=== PATIENT | male | born 1990 | race Caucasian/White ===

== ENCOUNTER 2020-09-11 03:10 | Emergency (ER) | payer MEDICAID ==
[~2020-09-11] VITALS: Ht 160 cm; Wt 77.3 kg
[2020-09-11] MEDS ORDERED: LORazepam 2 mg/ml vial IV ONE (03:20)
[2020-09-11 03:36] LABS: BASOPHILS # (AUTO) 0.1 X10'3 (0-0.2); BASOPHILS % (AUTO) 0.3 % (0-1); EOSINOPHILS % (AUTO) 0.1 % (0-6); HEMATOCRIT 50.3 % (42.0-52.0); HEMOGLOBIN 17.2 g/dl (14.0-17.9); LYMPHOCYTES % (AUTO) 11.3 % (21-51); MEAN CORPUSCULAR HGB CONC 34.2 g/dL (33.0-36.5); MEAN CORPUSCULAR VOLUME 90.5 FL (78-98); MEAN PLATELET VOLUME 8.2 FL (7.4-10.4); MONOCYTES # (AUTO) 1.1 X10'3 (0-0.9); MONOCYTES % (AUTO) 6.6 % (2-12); NEUTROPHILS # (AUTO) 14.2 X10'3 (1.8-7.7); NEUTROPHILS % (AUTO) 81.7 % (42-75); PLATELET COUNT 321 X10'3 (140-440); RED BLOOD COUNT 5.55 X10'6 (4.70-6.10); RED CELL DISTRIBUTION WIDTH 13.7 % (11.5-14.5); WHITE BLOOD COUNT 17.3 X10'3 (4.5-11.0)
--- NOTE | 2020-09-11 03:49 | NUR ---
Pt initially agitated with increased respiratory rate. After giving meds per MD order pt is resting quitely with eyes closed in no distress with normal work of breathing.
[2020-09-11 03:58] LABS: ALANINE AMINOTRANSFERASE 46 U/L (12-78); ALBUMIN 5.1 G/DL (3.4-5.0); ALBUMIN/GLOBULIN RATIO 1.4 (1.1-1.5); ALKALINE PHOSPHATASE 59 IU/L (46-116); ANION GAP 28 (8-16); ASPARTATE AMINO TRANSFERASE 32 U/L (10-37); BILIRUBIN,TOTAL 0.7 MG/DL (0.1-1.0); BLOOD UREA NITROGEN 8 MG/DL (7-18); BUN/CREATININE RATIO 7.4 (5.4-32.0); CALCIUM 9.7 MG/DL (8.5-10.1); CHLORIDE 101 MMOL/L (99-107); CREATININE 1.08 MG/DL (0.60-1.10); GLUCOSE 130 MG/DL (70-104); POTASSIUM 3.6 MMOL/L (3.5-5.1); SODIUM 143 MMOL/L (135-145); TOTAL PROTEIN 8.7 G/DL (6.4-8.2); eGFR 80 ML/MIN
[2020-09-11] MEDS ORDERED: normal saline 1000ML IV soln IVB ONE (04:20)
[2020-09-11 04:40] LABS: ETHANOL < 0.010 GM/DL (0.0-0.010)
[2020-09-11 04:41] LABS: ABG HCO3 13.5 mmol/L (22.0-26.0); ABG OXYGEN SATURATION 97.5 % (94-97); ABG PCO2 (T) 26.6 mmHg (35.0-48.0); ABG PO2 (T) 88.6 mmHg (75.0-100.0); ALLEN'S TEST POSITIVE; FCOHb 1.9 % (0.0-3.9); FMetHb 0.3 % (0.0-1.5); FO2Hb 95.4 % (94-97); PATIENT TEMPERATURE 35.9; TOTAL HEMOGLOBIN 17.2 G/dl (14.0-18.0)
--- NOTE | 2020-09-11 05:04 | NUR ---
Pt con to rest quietly in no apparent distress. States he is feeling much better.
[2020-09-11 05:43] VITALS: BP 112/65
== END 2020-09-11 05:46 | disposition home or self-care (01) ==
LOC: ER 03:10
DX: R06.02 Shortness of breath (principal); R07.89 Other chest pain; E87.2 Acidosis; F10.20 Alcohol dependence, uncomplicated; F17.200 Nicotine dependence, unspecified, uncomplicated; F12.90 Cannabis use, unspecified, uncomplicated; Z87.442 Personal history of urinary calculi; Z98.890 Other specified postprocedural states; Z72.89 Other problems related to lifestyle; Y90.0 Blood alcohol level of less than 20 mg/100 ml
CPT/HCPCS: 36415; 36600; 71045; 80053; 80320; 82803; 83880; 84484; 85018; 85025; 93005; 96361; 96374; 99285; J2060; J7030

== ENCOUNTER 2023-03-17 17:51 | Emergency (ER) | payer MEDICAID ==
[~2023-03-17] VITALS: Ht 162.6 cm; Wt 81.8 kg
[2023-03-17] MEDS ORDERED: ketorolac tromethamine 15mg/ml inj. IM ONE (20:05)
[2023-03-17] MEDS ORDERED: ketorolac trometh. 30mg/ml inj. IM ONE (20:20)
--- NOTE | 2023-03-17 21:37 | NUR ---
PT GIVEN PARTNERSHIP PACKET OF PCP.
== END 2023-03-17 21:38 | disposition home or self-care (01) ==
LOC: ER 17:52
DX: M54.32 Sciatica, left side (principal); M54.31 Sciatica, right side; F12.10 Cannabis abuse, uncomplicated; Z87.442 Personal history of urinary calculi
CPT/HCPCS: 72100; 96372; 99283; J1885

== ENCOUNTER 2024-04-17 06:01 | Emergency (ER) | payer MEDICAID ==
[~2024-04-17] VITALS: Ht 162.6 cm; Wt 100.8 kg
[2024-04-17 07:01] LABS: BASOPHILS % (AUTO) 0.2 % (0-1); EOSINOPHILS % (AUTO) 0 % (0-6); HEMOGLOBIN 17.5 g/dl (14.0-17.9); LYMPHOCYTES # (AUTO) 0.5 X10'3 (1.1-4.8); LYMPHOCYTES % (AUTO) 4.7 % (21-51); MEAN CORPUSCULAR HEMOGLOBIN 32.8 PG (27.0-31.0); MEAN CORPUSCULAR HGB CONC 34.2 g/dL (33.0-36.5); MEAN CORPUSCULAR VOLUME 95.9 FL (78-98); MEAN PLATELET VOLUME 8.9 FL (7.4-10.4); MONOCYTES # (AUTO) 0.9 X10'3 (0-0.9); MONOCYTES % (AUTO) 8.8 % (2-12); NEUTROPHILS % (AUTO) 86.3 % (42-75); PLATELET COUNT 176 X10'3 (140-440); RED BLOOD COUNT 5.32 X10'6 (4.70-6.10); WHITE BLOOD COUNT 10.4 X10'3 (4.5-11.0)
[2024-04-17 07:02] LABS: ALANINE AMINOTRANSFERASE 386 U/L (12-78); ALBUMIN 4.8 G/DL (3.4-5.0); ALKALINE PHOSPHATASE 108 IU/L (46-116); ANION GAP 34 (8-16); ASPARTATE AMINO TRANSFERASE 584 U/L (10-37); BILIRUBIN,TOTAL 3.3 MG/DL (0.1-1.0); BLOOD UREA NITROGEN 21 MG/DL (7-18); BUN/CREATININE RATIO 12.4 (10.0-20.0); CALCIUM 10.4 MG/DL (8.5-10.1); CHLORIDE 86 MMOL/L (99-107); CREATININE 1.69 MG/DL (0.60-1.10); ETHANOL < 10 MG/DL (<10); GLUCOSE 199 MG/DL (70-104); LIPASE 71 U/L (16-77); SODIUM 135 MMOL/L (135-145); TOTAL PROTEIN 9.6 G/DL (6.4-8.2); eCRCL 51 ML/MIN; eGFR 46 ML/MIN
[2024-04-17 07:07] LABS: TOTAL CARBON DIOXIDE 14.6 MMOL/L (24-32)
[2024-04-17] MEDS: LORazepam 2 mg/ml vial IV ONE (07:09)
[2024-04-17] MEDS: proCHLORperazine 10 MG/2 ml inj IV ONE (07:09)
[2024-04-17] MEDS: normal saline 1000ML IV soln IVB ONE (07:09)
[2024-04-17] MEDS: HYDROmorphone 1 mg/ml syringe IV ONE ×2 (07:10→09:40)
[2024-04-17] MEDS: mag hydrox/Alum hydrox/simeth 30ml oral suspension PO ONE (08:19)
[2024-04-17 09:30] VITALS: BP 157/100; PULSE 114; TEMP 97.7; O2SAT 98
[2024-04-17] MEDS: normal saline 1000ml 1,000 ML IV ONE (09:40)
[2024-04-17 09:56] VITALS: RESP 23
[2024-04-17] MEDS ORDERED: HYDR-3965 PO (10:28)
[2024-04-17] MEDS ORDERED: PANT40SU2 PO (10:28)
[2024-04-17 10:37] LABS: BILIRUBIN,URINE MODERATE (Neg); CLARITY,URINE SLIGHTLY CLOUDY (Clear); COLOR,URINE YELLOW (Yellow); GLUCOSE, URINE NEGATIVE (Neg); KETONES,URINE >=80 mg/dl (Neg); LEUKOCYTE ESTERASE ,URINE NEGATIVE (Neg); NITRITES, URINE NEGATIVE (Neg); OCCULT BLOOD,URINE LARGE (Neg); PROTEIN,URINE 30 mg/dl (Neg); UROBILINOGEN,URINE 0.2 E.U/dL (0.2-1.0)
[2024-04-17 10:40] LABS: UA COLLECTION TYPE VOIDED
[2024-04-17 10:47] LABS: BACTERIA,URINE 1+ /HPF (Neg); MUCUS STRANDS MODERATE /LPF (Neg); RBC,URINE 50-100 /HPF (0-2); SQUAMOUS EPITHELIAL CELL,UR FEW /LPF (FEW)
[2024-04-17 10:48] LABS: WBC CASTS 0-3 /LPF (NEGATIVE)
== END 2024-04-17 11:11 | disposition home or self-care (01) ==
LOC: ER 06:02
DX: K29.70 Gastritis, unspecified, without bleeding (principal); E87.29 Other acidosis; R11.2 Nausea with vomiting, unspecified; I10 Essential (primary) hypertension; F12.90 Cannabis use, unspecified, uncomplicated; Z79.899 Other long term (current) drug therapy
CPT/HCPCS: 36415; 71045; 80053; 80320; 81001; 83690; 85025; 87088; 96361; 96374; 96375; 96376; 99285; J0780; J1170; J2060; J7030

== ENCOUNTER 2024-08-09 10:59 | Emergency (ER) | payer MEDICAID ==
[~2024-08-09] VITALS: Ht 162.6 cm; Wt 99.6 kg
[~2024-08-09 10:59] MED LIST: GABA-535 PO; LISI10TA27 PO; ONDA-243 PO; PANT40SU2 PO; SUCR1TAB34 PO; TIZA2CAP7 PO
[2024-08-09] MEDS ORDERED: pantoprazole 40 MG vial IV SCH (11:50)
[2024-08-09] MEDS: ondansetron/PF 4mg/2ml inj IV ONE (12:13)
[2024-08-09] MEDS: normal saline 1000ml 1,000 ML IV ONE (12:13)
[2024-08-09] MEDS: pantoprazole 40 MG vial IV ONE (12:16)
[2024-08-09 12:33] LABS: WHITE BLOOD COUNT 12.8 X10'3 (4.5-11.0)
[2024-08-09 12:37] LABS: BASOPHILS % (AUTO) 0.2 % (0-1); EOSINOPHILS % (AUTO) 0 % (0-6); HEMATOCRIT 47.5 % (42.0-52.0); HEMOGLOBIN 16.1 g/dl (14.0-17.9); LYMPHOCYTES # (AUTO) 0.8 X10'3 (1.1-4.8); LYMPHOCYTES % (AUTO) 5.9 % (21-51); MEAN CORPUSCULAR HEMOGLOBIN 31.7 PG (27.0-31.0); MEAN CORPUSCULAR HGB CONC 33.8 g/dL (33.0-36.5); MEAN CORPUSCULAR VOLUME 93.5 FL (78-98); MEAN PLATELET VOLUME 8.3 FL (7.4-10.4); MONOCYTES # (AUTO) 0.6 X10'3 (0-0.9); MONOCYTES % (AUTO) 4.6 % (2-12); NEUTROPHILS # (AUTO) 11.4 X10'3 (1.8-7.7); NEUTROPHILS % (AUTO) 89.3 % (42-75); PLATELET COUNT 236 X10'3 (140-440); RED BLOOD COUNT 5.08 X10'6 (4.70-6.10); RED CELL DISTRIBUTION WIDTH 13.3 % (11.5-14.5)
[2024-08-09 12:48] LABS: ALANINE AMINOTRANSFERASE 38 U/L (12-78); ALBUMIN 4.1 G/DL (3.4-5.0); ALBUMIN/GLOBULIN RATIO 1.2 (1.1-1.5); ALKALINE PHOSPHATASE 66 IU/L (46-116); ANION GAP 22 (8-16); ASPARTATE AMINO TRANSFERASE 40 U/L (10-37); BILIRUBIN,TOTAL 1.1 MG/DL (0.1-1.0); BLOOD UREA NITROGEN 13 MG/DL (7-18); BUN/CREATININE RATIO 15.1 (10.0-20.0); CHLORIDE 102 MMOL/L (99-107); CREATININE 0.86 MG/DL (0.60-1.10); GLUCOSE 128 MG/DL (70-104); LIPASE 17 U/L (16-77); POTASSIUM 3.3 MMOL/L (3.5-5.1); SODIUM 142 MMOL/L (135-145); TOTAL CARBON DIOXIDE 18.5 MMOL/L (24-32); TOTAL PROTEIN 7.5 G/DL (6.4-8.2); eCRCL 100 ML/MIN; eGFR > 90 ML/MIN
[2024-08-09 14:09] VITALS: BP 121/66; PULSE 85; RESP 16; TEMP 98.2; O2SAT 99
[2024-08-09] MEDS ORDERED: OMEP40CA21 PO (23:29)
[2024-08-09] MEDS ORDERED: ONDA-243 PO (23:29)
[2024-08-09] MEDS ORDERED: CHLO25CA10 PO (23:29)
== END 2024-08-09 14:12 | disposition home or self-care (01) ==
LOC: ER 10:59
DX: K29.00 Acute gastritis without bleeding (principal); G58.8 Other specified mononeuropathies; I10 Essential (primary) hypertension; Z79.899 Other long term (current) drug therapy; Z87.19 Personal history of other diseases of the digestive system
CPT/HCPCS: 36415; 80053; 83690; 85025; 96361; 96374; 96375; 99284; J2405; J2470; J7030

== ENCOUNTER 2024-08-09 20:29 | Emergency (ER) | payer MEDICAID ==
[~2024-08-09] VITALS: Ht 162.6 cm; Wt 100.0 kg
[2024-08-09 20:52] VITALS: TEMP 98.2
[2024-08-09] MEDS ORDERED: ondansetron/PF 4mg/2ml inj IV STA (21:53)
[2024-08-09 22:55] VITALS: BP 150/94; PULSE 66; RESP 17; O2SAT 97
[2024-08-09] MEDS: ondansetron 4mg rapidly disintigrating tab PO STA (22:57)
[2024-08-09] MEDS: LIDOcaine 2% Viscous 15ml cup TP STA (22:58)
[2024-08-09] MEDS: mag hydrox/Alum hydrox/simeth 30ml oral suspension PO ONE (22:58)
[2024-08-09] MEDS: chlordiazePOXIDE 25mg capsule PO STA (22:58)
[2024-08-09] MEDS ORDERED: CHLO25CA10 PO (23:29)
[2024-08-09] MEDS ORDERED: ONDA-243 PO (23:29)
[2024-08-09] MEDS ORDERED: OMEP40CA21 PO (23:29)
== END 2024-08-09 23:47 | disposition home or self-care (01) ==
LOC: ER 20:29
DX: K29.20 Alcoholic gastritis without bleeding (principal); I10 Essential (primary) hypertension; F12.90 Cannabis use, unspecified, uncomplicated; F10.90 Alcohol use, unspecified, uncomplicated; Z98.890 Other specified postprocedural states; Z87.442 Personal history of urinary calculi; Z79.899 Other long term (current) drug therapy
CPT/HCPCS: 99284

== ENCOUNTER 2024-09-25 09:24 | Inpatient (IN) | payer MEDICAID ==
[~2024-09-25] VITALS: Ht 162.6 cm; Wt 92.2 kg
[~2024-09-25 09:24] MED LIST changes: +CHLO25CA10 PO
[2024-09-25 09:59] LABS: BILIRUBIN,URINE NEGATIVE (Neg); CLARITY,URINE CLEAR (Clear); COLOR,URINE YELLOW (Yellow); GLUCOSE, URINE NEGATIVE (Neg); KETONES,URINE >=80 mg/dl (Neg); LEUKOCYTE ESTERASE ,URINE NEGATIVE (Neg); NITRITES, URINE NEGATIVE (Neg); OCCULT BLOOD,URINE NEGATIVE (Neg); PH,URINE 5.5 (4.8-8.0); PROTEIN,URINE 30 mg/dl (Neg); UROBILINOGEN,URINE 0.2 E.U/dL (0.2-1.0)
[2024-09-25 10:09] LABS: UA COLLECTION TYPE CLN CATCH MIDSTREAM
[2024-09-25 10:35] LABS: BACTERIA,URINE FEW /HPF (Neg); RBC,URINE 0-2 /HPF (0-2); SQUAMOUS EPITHELIAL CELL,UR FEW /LPF (FEW); WBC,URINE 0-4 /HPF (0-4)
[2024-09-25 10:55] LABS: BASOPHILS % (AUTO) 0.1 % (0-1); EOSINOPHILS % (AUTO) 0 % (0-6); HEMATOCRIT 54.1 % (42.0-52.0); LYMPHOCYTES # (AUTO) 1.1 X10'3 (1.1-4.8); LYMPHOCYTES % (AUTO) 5.8 % (21-51); MEAN CORPUSCULAR HEMOGLOBIN 30.9 PG (27.0-31.0); MEAN CORPUSCULAR VOLUME 90.9 FL (78-98); MEAN PLATELET VOLUME 8.4 FL (7.4-10.4); MONOCYTES # (AUTO) 0.8 X10'3 (0-0.9); MONOCYTES % (AUTO) 4.1 % (2-12); NEUTROPHILS # (AUTO) 17.7 X10'3 (1.8-7.7); PLATELET COUNT 310 X10'3 (140-440); RED BLOOD COUNT 5.96 X10'6 (4.70-6.10); RED CELL DISTRIBUTION WIDTH 13.2 % (11.5-14.5); WHITE BLOOD COUNT 19.6 X10'3 (4.5-11.0)
[2024-09-25 10:57] LABS: ALANINE AMINOTRANSFERASE 25 U/L (12-78); ALBUMIN 4.6 G/DL (3.4-5.0); ALKALINE PHOSPHATASE 97 IU/L (46-116); ANION GAP 25 (8-16); ASPARTATE AMINO TRANSFERASE 26 U/L (10-37); BILIRUBIN,TOTAL 1.6 MG/DL (0.1-1.0); BLOOD UREA NITROGEN 20 MG/DL (7-18); BUN/CREATININE RATIO 14.9 (10.0-20.0); CALCIUM 9.6 MG/DL (8.5-10.1); CHLORIDE 93 MMOL/L (99-107); CREATININE 1.34 MG/DL (0.60-1.10); GLUCOSE 194 MG/DL (70-104); LIPASE 13 U/L (16-77); SODIUM 136 MMOL/L (135-145); TOTAL CARBON DIOXIDE 17.6 MMOL/L (24-32); TOTAL PROTEIN 9.4 G/DL (6.4-8.2); eCRCL 64 ML/MIN; eGFR 61 ML/MIN
[2024-09-25 10:58] LABS: POTASSIUM 4.7 MMOL/L (3.5-5.1)
[2024-09-25 10:59] LABS: HEMOGLOBIN 18.4 g/dl (14.0-17.9)
[2024-09-25] MEDS: ondansetron 4mg rapidly disintigrating tab PO ONE (11:42)
[2024-09-25] MEDS: folic acid 1mg/0.2ml inj IV ONE (11:50)
[2024-09-25] MEDS: thiamine 100mg/ml 2ml inj. IV ONE (12:10)
[2024-09-25] MEDS: HYDROmorphone 1 mg/ml syringe IV ONE (12:10)
[2024-09-25] MEDS: normal saline 1000ml 1,000 ML IV ONE ×2 (12:10→14:10)
[2024-09-25] MEDS ORDERED: ACET-1025 PO (12:18)
[2024-09-25] MEDS: thiamine 100mg tablet PO SCH (16:40)
[2024-09-25] MEDS: folic acid 1mg/0.2ml inj IV SCH (16:40)
[2024-09-25] MEDS ORDERED: magnesium sulf-water 2g/50mL 50 ML IV PRN ×2 (16:40)
[2024-09-25] MEDS ORDERED: dextrose 50%-water 50ml dispensing syringe IV PRN (16:40)
[2024-09-25] MEDS ORDERED: magnesium sulf-water 4G/100mL 100 ML IV PRN ×2 (16:40)
[2024-09-25] MEDS ORDERED: magnesium Cl slow-release 64mg tablet PO PRN ×2 (16:40)
[2024-09-25] MEDS ORDERED: potassium Cl 40MEQ/1/2NS 520ml 520 ML IV PRN (16:40)
[2024-09-25] MEDS: HYDROmorphone inj. 0.5 MG/0.5 ML DISP.SYRIN IV ONE (16:40)
[2024-09-25] MEDS: folic acid 1mg tablet PO SCH (16:40)
[2024-09-25] MEDS ORDERED: acetaminophen 325mg tablet PO PRN (16:40)
[2024-09-25] MEDS: diphenhydrAMINE 50 mg/ml inj IV ONE (16:41)
[2024-09-25] MEDS: metoclopramide 5 mg/ml inj IV ONE (16:41)
[2024-09-25] MEDS: normal saline 1000ml 1,000 ML IV SCH (17:14)
[2024-09-25] MEDS: K and/or MAG REPLACEMENT MC SCH (20:00)
[2024-09-25] MEDS: thiamine 100mg/ml 2ml inj. IV SCH (20:30)
[2024-09-25] MEDS: pantoprazole 40MG/NS 100ML BAG 100 ML IV SCH (20:30)
[2024-09-25] MEDS: ondansetron/PF 4mg/2ml inj IV PRN (20:43)
[2024-09-25] MEDS: morphine 2 MG/ML inj. syringe IV PRN (20:43)
[2024-09-25] MEDS: morphine 2 MG/ML inj. syringe IV ONE (21:35)
[2024-09-25] MEDS: LORazepam 2 mg/ml vial IV PRN (21:50)
[2024-09-26 02:46] LABS: BASOPHILS # (AUTO) 0.1 X10'3 (0-0.2); BASOPHILS % (AUTO) 0.6 % (0-1); EOSINOPHILS % (AUTO) 0.1 % (0-6); HEMATOCRIT 44.9 % (42.0-52.0); HEMOGLOBIN 15.5 g/dl (14.0-17.9); LYMPHOCYTES # (AUTO) 1.4 X10'3 (1.1-4.8); LYMPHOCYTES % (AUTO) 9.3 % (21-51); MEAN CORPUSCULAR HEMOGLOBIN 30.5 PG (27.0-31.0); MEAN CORPUSCULAR HGB CONC 34.4 g/dL (33.0-36.5); MEAN CORPUSCULAR VOLUME 88.6 FL (78-98); MEAN PLATELET VOLUME 7.9 FL (7.4-10.4); MONOCYTES # (AUTO) 1.2 X10'3 (0-0.9); MONOCYTES % (AUTO) 8.1 % (2-12); NEUTROPHILS # (AUTO) 11.9 X10'3 (1.8-7.7); NEUTROPHILS % (AUTO) 81.9 % (42-75); PLATELET COUNT 231 X10'3 (140-440); RED BLOOD COUNT 5.06 X10'6 (4.70-6.10); RED CELL DISTRIBUTION WIDTH 13.3 % (11.5-14.5); WHITE BLOOD COUNT 14.5 X10'3 (4.5-11.0)
[2024-09-26 02:57] LABS: ALBUMIN 3.4 G/DL (3.4-5.0); ANION GAP 8 (8-16); BLOOD UREA NITROGEN 16 MG/DL (7-18); BUN/CREATININE RATIO 19.8 (10.0-20.0); CALCIUM 8.4 MG/DL (8.5-10.1); CHLORIDE 104 MMOL/L (99-107); CREATININE 0.81 MG/DL (0.60-1.10); GLUCOSE 91 MG/DL (70-104); MAGNESIUM 1.7 MG/DL (1.5-2.4); SODIUM 139 MMOL/L (135-145); eCRCL 107 ML/MIN; eGFR > 90 ML/MIN
[2024-09-26 02:58] LABS: POTASSIUM 4.3 MMOL/L (3.5-5.1)
[2024-09-26] MEDS: haloperidol lactate 5mg/ml inj IM PRN (12:22)
[2024-09-26 16:47] VITALS: RESP 18; O2SAT 100
[2024-09-26 16:57] VITALS: BP 142/87; PULSE 72; RESP 16; TEMP 97.6; O2SAT 99
[2024-09-26] MEDS: haloperidol 5mg tablet PO PRN (17:42)
[2024-09-26 18:00] VITALS: BP 134/84; PULSE 88; RESP 19; TEMP 99; O2SAT 97
[2024-09-26] MEDS: lisinopril 10 MG tablet PO SCH (18:45)
[2024-09-26] MEDS ORDERED: tizanidine 4mg tablet PO PRN (18:45)
[2024-09-26 20:00] VITALS: BP_SYST 125; BP_SYST 135; BP_SYST 140; BP_DIAS 70; BP_DIAS 74; BP_DIAS 84; PULSE 76; PULSE 83; PULSE 88; RESP 19; O2SAT 96
[2024-09-26] MEDS: gabapentin 400mg capsule PO SCH (20:48)
[2024-09-26] MEDS: HYDROcodone/acetaminophen 5mg/325mg tablet PO PRN (21:57)
[2024-09-26 22:00] VITALS: BP 142/87; PULSE 72; RESP 16; TEMP 98; O2SAT 99
[2024-09-27 02:00] VITALS: BP 105/67; PULSE 81; RESP 16; TEMP 97.1; O2SAT 96
[2024-09-27 07:45] LABS: BASOPHILS % (AUTO) 0.3 % (0-1); EOSINOPHILS % (AUTO) 0.6 % (0-6); HEMATOCRIT 41.6 % (42.0-52.0); HEMOGLOBIN 14.4 g/dl (14.0-17.9); LYMPHOCYTES # (AUTO) 1.4 X10'3 (1.1-4.8); LYMPHOCYTES % (AUTO) 21.1 % (21-51); MEAN CORPUSCULAR HEMOGLOBIN 30.7 PG (27.0-31.0); MEAN CORPUSCULAR HGB CONC 34.6 g/dL (33.0-36.5); MEAN CORPUSCULAR VOLUME 88.8 FL (78-98); MEAN PLATELET VOLUME 8.3 FL (7.4-10.4); MONOCYTES # (AUTO) 0.7 X10'3 (0-0.9); MONOCYTES % (AUTO) 10.6 % (2-12); NEUTROPHILS # (AUTO) 4.4 X10'3 (1.8-7.7); NEUTROPHILS % (AUTO) 67.4 % (42-75); PLATELET COUNT 159 X10'3 (140-440); RED BLOOD COUNT 4.69 X10'6 (4.70-6.10); RED CELL DISTRIBUTION WIDTH 13.2 % (11.5-14.5); WHITE BLOOD COUNT 6.5 X10'3 (4.5-11.0)
[2024-09-27 08:26] LABS: ALBUMIN 2.9 G/DL (3.4-5.0); ANION GAP 8 (8-16); BLOOD UREA NITROGEN 10 MG/DL (7-18); BUN/CREATININE RATIO 13.5 (10.0-20.0); CALCIUM 8.2 MG/DL (8.5-10.1); CHLORIDE 105 MMOL/L (99-107); CREATININE 0.74 MG/DL (0.60-1.10); GLUCOSE 91 MG/DL (70-104); LIPASE 23 U/L (16-77); MAGNESIUM 1.6 MG/DL (1.5-2.4); POTASSIUM 3.3 MMOL/L (3.5-5.1); SODIUM 142 MMOL/L (135-145); TOTAL CARBON DIOXIDE 28.9 MMOL/L (24-32); eCRCL 117 ML/MIN; eGFR > 90 ML/MIN
[2024-09-27 09:15] VITALS: RESP 18
[2024-09-27 09:29] VITALS: BP 119/79; PULSE 76; RESP 20; TEMP 97.5; O2SAT 99
[2024-09-27] MEDS: tamsulosin 0.4mg capsule PO ONE (14:46)
[2024-09-27] MEDS: gabapentin 400mg capsule PO SCH (14:47)
[2024-09-27] MEDS: potassium Cl 20 mEq SR tablet PO PRN (15:38)
[2024-09-27] MEDS ORDERED: LORazepam 2 mg/ml vial IV PRN (16:40)
[2024-09-27] MEDS: LORazepam 1 MG tablet PO PRN (17:47)
[2024-09-27 18:00] VITALS: BP 123/88; PULSE 74; RESP 15; TEMP 98; O2SAT 98
[2024-09-27 20:00] VITALS: BP 124/87; PULSE 74; RESP 19; O2SAT 96
[2024-09-27 22:00] VITALS: BP 128/88; PULSE 80; RESP 20; TEMP 98.1; O2SAT 99
[2024-09-28 02:00] VITALS: BP 115/67; PULSE 84; RESP 16; TEMP 97.1; O2SAT 98
[2024-09-28 06:21] LABS: BASOPHILS % (AUTO) 0.3 % (0-1); EOSINOPHILS # (AUTO) 0.1 X10'3 (0-0.9); EOSINOPHILS % (AUTO) 0.9 % (0-6); HEMATOCRIT 42.9 % (42.0-52.0); HEMOGLOBIN 14.7 g/dl (14.0-17.9); LYMPHOCYTES # (AUTO) 1.6 X10'3 (1.1-4.8); LYMPHOCYTES % (AUTO) 23.3 % (21-51); MEAN CORPUSCULAR HEMOGLOBIN 30.5 PG (27.0-31.0); MEAN CORPUSCULAR HGB CONC 34.3 g/dL (33.0-36.5); MEAN PLATELET VOLUME 8.6 FL (7.4-10.4); MONOCYTES # (AUTO) 0.7 X10'3 (0-0.9); MONOCYTES % (AUTO) 10.1 % (2-12); NEUTROPHILS # (AUTO) 4.4 X10'3 (1.8-7.7); NEUTROPHILS % (AUTO) 65.4 % (42-75); PLATELET COUNT 153 X10'3 (140-440); RED BLOOD COUNT 4.82 X10'6 (4.70-6.10); WHITE BLOOD COUNT 6.7 X10'3 (4.5-11.0)
[2024-09-28 06:32] LABS: ALBUMIN 2.7 G/DL (3.4-5.0); ANION GAP 6 (8-16); BLOOD UREA NITROGEN 8 MG/DL (7-18); BUN/CREATININE RATIO 12.1 (10.0-20.0); CALCIUM 8.5 MG/DL (8.5-10.1); CHLORIDE 107 MMOL/L (99-107); CREATININE 0.66 MG/DL (0.60-1.10); GLUCOSE 88 MG/DL (70-104); MAGNESIUM 1.6 MG/DL (1.5-2.4); POTASSIUM 3.3 MMOL/L (3.5-5.1); SODIUM 142 MMOL/L (135-145); TOTAL CARBON DIOXIDE 29.2 MMOL/L (24-32); eCRCL 131 ML/MIN; eGFR > 90 ML/MIN
[2024-09-28 07:20] VITALS: BP 123/89; PULSE 88; RESP 14; TEMP 97.2; O2SAT 99
[2024-09-28 07:30] VITALS: RESP 18
[2024-09-28 11:00] VITALS: BP 103/61; PULSE 72; RESP 19; TEMP 98.5; O2SAT 79
[2024-09-28] MEDS ORDERED: PANT-47 PO (12:40)
[2024-09-28] MEDS ORDERED: POTA-207 PO (12:40)
[2024-09-28] MEDS ORDERED: NALT50TA5 PO (12:40)
[2024-09-28] MEDS: potassium Cl 20 mEq SR tablet PO PRN (13:59)
[2024-09-29] MEDS ORDERED: folic acid 1mg tablet PO SCH (08:00)
[2024-09-29] MEDS ORDERED: LORazepam 1 MG tablet PO PRN (16:40)
[2024-09-29] MEDS ORDERED: LORazepam 2 mg/ml vial IV PRN (16:40)
== END 2024-09-28 14:33 | disposition home or self-care (01) | DRG 241 ==
LOC: ER 09:25 → ED HOLD 16:43 → PCU 3S 09-26 16:28
PROVIDERS: ADMIT Internal Medicine; ATTEND Internal Medicine
DX: K29.20 Alcoholic gastritis without bleeding (principal); N17.9 Acute kidney failure, unspecified; E87.1 Hypo-osmolality and hyponatremia; D72.829 Elevated white blood cell count, unspecified; E87.29 Other acidosis; F17.210 Nicotine dependence, cigarettes, uncomplicated; I10 Essential (primary) hypertension; Y90.9 Presence of alcohol in blood, level not specified; Z66 Do not resuscitate; G89.29 Other chronic pain; M54.9 Dorsalgia, unspecified; E87.6 Hypokalemia; F10.239 Alcohol dependence with withdrawal, unspecified; Z63.4 Disappearance and death of family member; Z79.899 Other long term (current) drug therapy; Z83.3 Family history of diabetes mellitus; Z87.442 Personal history of urinary calculi
CPT/HCPCS: 36415; 76700; 80048; 80053; 80320; 81001; 82948; 83690; 83735; 84145; 85025; 87081; 96374; 96375; 97116; 97161; 97530; 99285; C1758; G0378; J1171; J1200; J1630; J2060; J2270; J2405; J2470; J2765; J3411; J3490; J7030

== ENCOUNTER 2024-11-11 07:25 | Emergency (ER) | payer MEDICAID ==
[~2024-11-11] VITALS: Ht 162.6 cm; Wt 97.5 kg
[~2024-11-11 07:25] MED LIST changes: +ACET-1025 PO; -CHLO25CA10 PO; +NALT50TA5 PO; +PANT-47 PO; -PANT40SU2 PO; +POTA-207 PO; -SUCR1TAB34 PO
[2024-11-11] MEDS: OLANZapine **IM** 10 mg inj. IM ONE (07:49)
[2024-11-11 08:08] LABS: BASOPHILS % (AUTO) 0.3 % (0-1); EOSINOPHILS % (AUTO) 0 % (0-6); HEMATOCRIT 48.4 % (42.0-52.0); HEMOGLOBIN 16.8 g/dl (14.0-17.9); LYMPHOCYTES # (AUTO) 1.1 X10'3 (1.1-4.8); LYMPHOCYTES % (AUTO) 6.9 % (21-51); MEAN CORPUSCULAR HGB CONC 34.8 g/dL (33.0-36.5); MEAN PLATELET VOLUME 8.2 FL (7.4-10.4); MONOCYTES # (AUTO) 1.3 X10'3 (0-0.9); MONOCYTES % (AUTO) 8.2 % (2-12); NEUTROPHILS # (AUTO) 13.7 X10'3 (1.8-7.7); NEUTROPHILS % (AUTO) 84.6 % (42-75); PLATELET COUNT 274 X10'3 (140-440); RED BLOOD COUNT 5.44 X10'6 (4.70-6.10); RED CELL DISTRIBUTION WIDTH 16.2 % (11.5-14.5); WHITE BLOOD COUNT 16.2 X10'3 (4.5-11.0)
[2024-11-11 08:42] LABS: ALANINE AMINOTRANSFERASE 26 U/L (12-78); ALBUMIN 4.7 G/DL (3.4-5.0); ALKALINE PHOSPHATASE 92 IU/L (46-116); ANION GAP 18 (8-16); ASPARTATE AMINO TRANSFERASE 24 U/L (10-37); BILIRUBIN,TOTAL 1.1 MG/DL (0.1-1.0); BLOOD UREA NITROGEN 26 MG/DL (7-18); BUN/CREATININE RATIO 19.5 (10.0-20.0); CALCIUM 10.7 MG/DL (8.5-10.1); CHLORIDE 93 MMOL/L (99-107); CREATININE 1.33 MG/DL (0.60-1.10); GLUCOSE 143 MG/DL (70-104); LIPASE 24 U/L (16-77); POTASSIUM 4.3 MMOL/L (3.5-5.1); SODIUM 134 MMOL/L (135-145); TOTAL PROTEIN 9.6 G/DL (6.4-8.2); eCRCL 64 ML/MIN; eGFR 61 ML/MIN
[2024-11-11] MEDS: folic acid 1mg/0.2ml inj IV ONE (09:55)
[2024-11-11] MEDS: thiamine 100mg/ml 2ml inj. IV SCH (09:55)
[2024-11-11] MEDS: LORazepam 1 MG tablet PO PRN (09:55)
[2024-11-11] MEDS: normal saline 1000ML IV soln IVB ONE (09:55)
[2024-11-11] MEDS ORDERED: OMEP40CA21 PO (10:18)
[2024-11-11] MEDS: pantoprazole 40 MG vial IV ONE (10:41)
[2024-11-11 11:37] VITALS: BP 150/102; PULSE 85; RESP 18; TEMP 98.5; O2SAT 100
== END 2024-11-11 11:44 | disposition home or self-care (01) ==
LOC: ER 07:27
DX: K29.00 Acute gastritis without bleeding (principal); F10.10 Alcohol abuse, uncomplicated; I10 Essential (primary) hypertension; F32.A Depression, unspecified; Z87.442 Personal history of urinary calculi; F12.90 Cannabis use, unspecified, uncomplicated; Z98.890 Other specified postprocedural states; Y90.9 Presence of alcohol in blood, level not specified
CPT/HCPCS: 36415; 74176; 80053; 83690; 85025; 96361; 96372; 96374; 96375; 99285; J2470; J3411; J3490; J7030

== ENCOUNTER 2024-11-12 05:27 | Emergency (ER) | payer MEDICAID ==
[~2024-11-12] VITALS: Ht 162.6 cm; Wt 97.8 kg
[~2024-11-12 05:27] MED LIST changes: +OMEP40CA21 PO
[2024-11-12 07:14] LABS: BASOPHILS # (AUTO) 0.1 X10'3 (0-0.2); BASOPHILS % (AUTO) 0.6 % (0-1); EOSINOPHILS % (AUTO) 0.4 % (0-6); HEMATOCRIT 46.8 % (42.0-52.0); HEMOGLOBIN 16.1 g/dl (14.0-17.9); MEAN CORPUSCULAR HGB CONC 34.5 g/dL (33.0-36.5); MEAN PLATELET VOLUME 7.7 FL (7.4-10.4); MONOCYTES # (AUTO) 0.9 X10'3 (0-0.9); NEUTROPHILS # (AUTO) 6.5 X10'3 (1.8-7.7); PLATELET COUNT 210 X10'3 (140-440); RED CELL DISTRIBUTION WIDTH 16.3 % (11.5-14.5); WHITE BLOOD COUNT 8.5 X10'3 (4.5-11.0)
[2024-11-12] MEDS ORDERED: morphine 2 MG/ML inj. syringe IV PRN (07:50)
[2024-11-12] MEDS: LORazepam 2 mg/ml vial IV ONE (08:21)
[2024-11-12] MEDS: haloperidol lactate 5mg/ml inj IM ONE (08:22)
[2024-11-12] MEDS: normal saline 1000ML IV soln IVB ONE (08:22)
[2024-11-12] MEDS: ketorolac trometh 15mg/ml vial 15 MG/ML ML IV ONE (08:22)
[2024-11-12] MEDS: pantoprazole 40 MG vial IV ONE (08:22)
[2024-11-12] MEDS: normal saline 1000ml 1,000 ML IV ONE (08:22)
[2024-11-12 09:23] LABS: BILIRUBIN,URINE MODERATE (Neg); CLARITY,URINE CLEAR (Clear); COLOR,URINE YELLOW (Yellow); GLUCOSE, URINE NEGATIVE (Neg); KETONES,URINE >=80 mg/dl (Neg); LEUKOCYTE ESTERASE ,URINE NEGATIVE (Neg); NITRITES, URINE NEGATIVE (Neg); OCCULT BLOOD,URINE NEGATIVE (Neg); PROTEIN,URINE TRACE mg/dl (Neg); UROBILINOGEN,URINE 0.2 E.U/dL (0.2-1.0)
[2024-11-12 09:29] LABS: UA COLLECTION TYPE URINAL
[2024-11-12 09:31] LABS: BACTERIA,URINE NONE SEEN /HPF (Neg); RBC,URINE 0-2 /HPF (0-2); SQUAMOUS EPITHELIAL CELL,UR FEW /LPF (FEW); WBC,URINE 0-4 /HPF (0-4)
[2024-11-12 09:59] LABS: ALANINE AMINOTRANSFERASE 30 U/L (12-78); ALBUMIN 4.1 G/DL (3.4-5.0); ALKALINE PHOSPHATASE 78 IU/L (46-116); ANION GAP 18 (8-16); ASPARTATE AMINO TRANSFERASE 30 U/L (10-37); BLOOD UREA NITROGEN 17 MG/DL (7-18); BUN/CREATININE RATIO 21.3 (10.0-20.0); CALCIUM 9.4 MG/DL (8.5-10.1); CHLORIDE 102 MMOL/L (99-107); LIPASE 29 U/L (16-77); MAGNESIUM 1.9 MG/DL (1.5-2.4); POTASSIUM 3.6 MMOL/L (3.5-5.1); SODIUM 141 MMOL/L (135-145); TOTAL CARBON DIOXIDE 21.4 MMOL/L (24-32); TOTAL PROTEIN 8.1 G/DL (6.4-8.2); eCRCL 107 ML/MIN; eGFR > 90 ML/MIN
[2024-11-12 10:41] LABS: GLUCOSE 109 MG/DL (70-104)
[2024-11-12 10:47] LABS: ETHANOL < 10 MG/DL (<10)
[2024-11-12] MEDS: mag hydrox/Alum hydrox/simeth 30ml oral suspension PO ONE (10:52)
[2024-11-12 11:17] VITALS: BP 122/78; PULSE 89; RESP 16; TEMP 97.6; O2SAT 99
== END 2024-11-12 11:15 | disposition home or self-care (01) ==
LOC: ER 05:27
DX: K29.20 Alcoholic gastritis without bleeding (principal); I10 Essential (primary) hypertension; F41.9 Anxiety disorder, unspecified; Z87.442 Personal history of urinary calculi; F17.210 Nicotine dependence, cigarettes, uncomplicated; F10.90 Alcohol use, unspecified, uncomplicated; F12.90 Cannabis use, unspecified, uncomplicated; Z98.890 Other specified postprocedural states; Y90.9 Presence of alcohol in blood, level not specified
CPT/HCPCS: 36415; 80053; 80320; 81001; 83690; 83735; 85025; 96361; 96372; 96374; 96375; 99284; J1630; J1885; J2060; J2470; J7030

== ENCOUNTER 2024-12-17 10:19 | Emergency (ER) | payer MEDICAID ==
[~2024-12-17] VITALS: Ht 165.1 cm; Wt 102.8 kg
[~2024-12-17 10:19] MED LIST changes: -OMEP40CA21 PO
[2024-12-17 10:59] LABS: BASOPHILS # (AUTO) 0.1 X10'3 (0-0.2); BASOPHILS % (AUTO) 0.8 % (0-1); EOSINOPHILS % (AUTO) 0.4 % (0-6); HEMATOCRIT 50.5 % (42.0-52.0); HEMOGLOBIN 17.6 g/dl (14.0-17.9); LYMPHOCYTES # (AUTO) 1.4 X10'3 (1.1-4.8); LYMPHOCYTES % (AUTO) 11.6 % (21-51); MEAN CORPUSCULAR HEMOGLOBIN 31.3 PG (27.0-31.0); MEAN CORPUSCULAR HGB CONC 34.9 g/dL (33.0-36.5); MEAN CORPUSCULAR VOLUME 89.7 FL (78-98); MEAN PLATELET VOLUME 7.6 FL (7.4-10.4); MONOCYTES # (AUTO) 0.9 X10'3 (0-0.9); MONOCYTES % (AUTO) 7.6 % (2-12); NEUTROPHILS # (AUTO) 9.6 X10'3 (1.8-7.7); NEUTROPHILS % (AUTO) 79.6 % (42-75); PLATELET COUNT 339 X10'3 (140-440); RED BLOOD COUNT 5.63 X10'6 (4.70-6.10); RED CELL DISTRIBUTION WIDTH 15.5 % (11.5-14.5); WHITE BLOOD COUNT 12.1 X10'3 (4.5-11.0)
[2024-12-17 11:23] LABS: ALANINE AMINOTRANSFERASE 28 U/L (12-78); ALBUMIN 4.3 G/DL (3.4-5.0); ALKALINE PHOSPHATASE 89 IU/L (46-116); ANION GAP 20 (8-16); ASPARTATE AMINO TRANSFERASE 33 U/L (10-37); BILIRUBIN,TOTAL 0.8 MG/DL (0.1-1.0); BLOOD UREA NITROGEN 19 MG/DL (7-18); BUN/CREATININE RATIO 17.6 (10.0-20.0); CALCIUM 9.8 MG/DL (8.5-10.1); CHLORIDE 99 MMOL/L (99-107); CREATININE 1.08 MG/DL (0.60-1.10); GLUCOSE 120 MG/DL (70-104); POTASSIUM 4.2 MMOL/L (3.5-5.1); SODIUM 137 MMOL/L (135-145); TOTAL CARBON DIOXIDE 17.6 MMOL/L (24-32); TOTAL PROTEIN 8.8 G/DL (6.4-8.2); eCRCL 82 ML/MIN; eGFR 77 ML/MIN
[2024-12-17 11:35] LABS: ETHANOL < 10 MG/DL (<10); LIPASE 31 U/L (16-77)
[2024-12-17] MEDS: ondansetron 4mg rapidly disintigrating tab PO ONE (12:40)
[2024-12-17] MEDS: dicyclomine 10 MG capsule PO ONE (12:40)
[2024-12-17 12:42] VITALS: TEMP 97.6
[2024-12-17] MEDS: metoclopramide 5 mg/ml inj IV ONE (14:12)
[2024-12-17] MEDS: normal saline 1000ml 1,000 ML IV ONE (14:12)
[2024-12-17] MEDS: diphenhydrAMINE 50 mg/ml inj IV ONE (14:13)
[2024-12-17 15:09] LABS: BILIRUBIN,URINE SMALL (Neg); CLARITY,URINE SLIGHTLY CLOUDY (Clear); GLUCOSE, URINE NEGATIVE (Neg); KETONES,URINE NEGATIVE (Neg); LEUKOCYTE ESTERASE ,URINE NEGATIVE (Neg); NITRITES, URINE NEGATIVE (Neg); OCCULT BLOOD,URINE NEGATIVE (Neg); PH,URINE 5.5 (4.8-8.0); PROTEIN,URINE 30 mg/dl (Neg); UROBILINOGEN,URINE 0.2 E.U/dL (0.2-1.0)
[2024-12-17 15:13] LABS: COLOR,URINE DARK YELLOW (Yellow); UA COLLECTION TYPE VOIDED
[2024-12-17 15:23] LABS: WBC,URINE 0-4 /HPF (0-4)
[2024-12-17 15:24] LABS: BACTERIA,URINE FEW /HPF (Neg); RBC,URINE 0-2 /HPF (0-2); SQUAMOUS EPITHELIAL CELL,UR FEW /LPF (FEW)
[2024-12-17] MEDS ORDERED: ONDA-243 PO (15:27)
[2024-12-17 16:50] VITALS: BP 134/86; PULSE 87; RESP 16; O2SAT 98
== END 2024-12-17 17:04 | disposition home or self-care (01) ==
LOC: ER 10:19
DX: F10.129 Alcohol abuse with intoxication, unspecified (principal); R11.2 Nausea with vomiting, unspecified; I10 Essential (primary) hypertension; F41.9 Anxiety disorder, unspecified; Z87.440 Personal history of urinary (tract) infections; F12.90 Cannabis use, unspecified, uncomplicated; Z98.890 Other specified postprocedural states; Y90.9 Presence of alcohol in blood, level not specified
CPT/HCPCS: 36415; 71045; 80053; 80320; 81001; 83690; 84484; 85025; 93005; 96361; 96374; 96375; 99285; J1200; J2765; J7030

== ENCOUNTER 2025-02-27 08:28 | Emergency (ER) | payer MEDICAID ==
[~2025-02-27] VITALS: Ht 162.6 cm; Wt 110.5 kg
[2025-02-27 09:00] LABS: BASOPHILS % (AUTO) 0.4 % (0-1); EOSINOPHILS % (AUTO) 0.2 % (0-6); HEMATOCRIT 49.2 % (42.0-52.0); LYMPHOCYTES # (AUTO) 1.4 X10'3 (1.1-4.8); LYMPHOCYTES % (AUTO) 13.4 % (21-51); MEAN CORPUSCULAR HEMOGLOBIN 30.8 PG (27.0-31.0); MEAN CORPUSCULAR HGB CONC 34.5 g/dL (33.0-36.5); MEAN CORPUSCULAR VOLUME 89.3 FL (78-98); MEAN PLATELET VOLUME 7.5 FL (7.4-10.4); MONOCYTES # (AUTO) 0.6 X10'3 (0-0.9); MONOCYTES % (AUTO) 6.2 % (2-12); NEUTROPHILS # (AUTO) 8.1 X10'3 (1.8-7.7); NEUTROPHILS % (AUTO) 79.8 % (42-75); PLATELET COUNT 280 X10'3 (140-440); RED BLOOD COUNT 5.51 X10'6 (4.70-6.10); WHITE BLOOD COUNT 10.2 X10'3 (4.5-11.0)
[2025-02-27 09:15] LABS: ALANINE AMINOTRANSFERASE 23 U/L (12-78); ALBUMIN 3.8 G/DL (3.4-5.0); ALKALINE PHOSPHATASE 95 IU/L (46-116); ASPARTATE AMINO TRANSFERASE 25 U/L (10-37); BILIRUBIN,TOTAL 0.7 MG/DL (0.1-1.0); CALCIUM 8.8 MG/DL (8.5-10.1); LIPASE 14 U/L (16-77); TOTAL CARBON DIOXIDE 21.1 MMOL/L (24-32); TOTAL PROTEIN 7.6 G/DL (6.4-8.2)
[2025-02-27 09:16] LABS: ANION GAP 18 (8-16); BLOOD UREA NITROGEN 14 MG/DL (7-18); BUN/CREATININE RATIO 17.1 (10.0-20.0); CHLORIDE 98 MMOL/L (99-107); CREATININE 0.82 MG/DL (0.60-1.10); GLUCOSE 118 MG/DL (70-104); POTASSIUM 4.3 MMOL/L (3.5-5.1); SODIUM 137 MMOL/L (135-145); eCRCL 104 ML/MIN; eGFR > 90 ML/MIN
--- NOTE | 2025-02-27 14:43 | Physician Documentation ---
History of Present Illness ~ Chief Complaint: Abdominal Pain w/vomiting Stated Complaint: VOMITING Time Seen by MD: 13:53 Primary Medical Doctor: HENRIETTA RDZ Patient is seen today with complaints of acute nausea and vomiting and cyclic vomiting. Patient states he smokes a gram of marijuana each week and has done so for years. Patient denies any diarrhea or fevers or chills or chest pain or shortness of breath and has no new or other concern or complaint at this time. Patient states he feels his stomach is sensitive and hurting from dry heaving so much recently. Medication Reconciliation Allergies: Coded Allergies: No Known Allergies (Unverified , 08/09/24) Scheduled Gabapentin (Gabapentin), 2 CAP PO TID Lisinopril (Lisinopril), 10 MG PO DAILY Naltrexone Hcl (Naltrexone Hcl), 1 TAB PO DAILY ONDANSETRON ODT 4mg tablet (Ondansetron Odt), 4 MG PO Q6H Pantoprazole Sodium (PROTONIX tablet), 1 TAB PO DAILY Potassium Chloride* (K-Dur*), 1 TAB PO DAILY Scheduled PRN Acetaminophen (Tylenol Extra Strength), 2 TAB PO Q6H PRN PRN for pain or fever, (Reported) ONDANSETRON ODT 4mg tablet (Ondansetron Odt), 1 TAB PO Q6H PRN PRN for nausea/vomiting Tizanidine Hcl (Tizanidine Hcl), 1 CAP PO Q6H PRN for pain, (Reported) Past Medical History Past Medical History: Hypertension, Gastritis, Hematuria, Kidney Stones, Anxiety Past Surgical History: orthopedic surgeries Patient History: FH: diabetes mellitus FATHER FH: thyroid condition MOTHER Alcohol Use: Heavy Drug Use: marijuana Occupation: employed Review of Systems Constitutional: Denies: chills, fever, weakness Eyes: Denies: pain, blurred vision ENT: Denies: ear pain, nose pain, throat pain, mouth pain Respiratory: Denies: cough, shortness of breath Cardiovascular: Denies: chest pain, palpitations Gastrointestinal: Denies: abdominal pain, nausea, vomiting Genitourinary: Denies: burning, dysuria Male Genitalia: Denies: penile discharge, testicular pain Neurological: Denies: headache, dizziness Musculoskeletal: Denies: pain, swelling Integumentary: Denies: rash, lesions Allergic/Immunologic: Denies: hives, itching Hematologic/Lymphatic: Denies: no symptoms reported Psychiatric: Denies: depression, anxiety Physical Exam Vital Signs: Temperature: 98.3, Source: Oral, Heart Rate: 101, Respiratory Rate: 20, BP: 158/109, Pulse Oximetry: 100, Weight: 110.500 Oxygen Flow Rate: 0 Physical Exam General: Awake and Alert, patient appears to be in mild to moderate distress due to significant nausea. HEENT: Conjunctiva pink, Sclera clear, Mucus Membranes moist. Neck: Supple without masses and tenderness. Resp: Unlabored. Lungs clear to auscultation bilaterally. Heart: Regular Rate and rhythm, normal S1 and S2 without murmur, rub or gallop. Abdomen: Patient has no rebound tenderness, abdomen is soft, nondistended, no guarding, mild tenderness to palpation in the epigastric area. Extremities: No cyanosis,clubbing or edema. Skin: Warm and Dry. Progress Results/Orders Results/Orders Orders - THALIA VIRK PAC Saline Lock (02/27/25 ) Lactic,2hr (02/27/25 18:12) Completed Orders - THALIA VIRK PAC Olanzapine Im (Zyprexa I.M. Im On (02/27/25 14:38) Normal Saline 1000ml (Sodium Chloride 10 (02/27/25 14:38) Prochlorperazine Inj (Compazine Inj) (02/27/25 14:38) Lacticsepsis (02/27/25 16:28) Procalcitonin (02/27/25 16:28) Normal Saline 1000ml (Sodium Chloride 10 (02/27/25 17:14) Normal Saline 1000ml (Sodium Chloride 10 (02/27/25 17:14) Lacticsepsis (02/27/25 17:53) Medications Received in ER Medications (Trade) Dose Ordered Sig/Manju Route PRN Reason Start Time Stop Time Status Last Admin Dose Admin (ZyPREXA I.M. IM ONLY) 10 mg ONCE STAT IM 02/27/25 14:38 02/27/25 14:43 DC 02/27/25 16:23 10 MG Sodium Chloride 1,000 ml @ 1,000 mls/hr ONCE STAT IV 02/27/25 14:38 02/27/25 15:37 DC 02/27/25 16:23 1,000 MLS/HR (Compazine inj) 10 mg ONCE STAT IV 02/27/25 14:38 02/27/25 14:43 DC 02/27/25 16:24 10 MG Sodium Chloride 1,000 ml @ 1,000 mls/hr ONCE STAT IV 02/27/25 17:14 02/27/25 18:13 DC 02/27/25 18:30 1,000 MLS/HR Sodium Chloride 1,000 ml @ 1,000 mls/hr ONCE STAT IV 02/27/25 17:14 02/27/25 18:13 DC 02/27/25 18:30 1,000 MLS/HR Vital Signs 02/27/25 02/27/25 02/27/25 02/27/25 08:29 11:50 15:00 16:27 Temp 98.2 98.3 Pulse 113 101 102 Resp 16 20 14 B/P (MAP) 130/106 158/109 (125) 133/77 (95) Pulse Ox 100 100 98 O2 Flow Rate 0 0 0 02/27/25 02/27/25 16:27 18:30 Temp 98.3 Pulse 100 86 Resp 16 16 B/P (MAP) 144/89 (107) 130/71 (90) Pulse Ox 99 98 O2 Flow Rate 0 0 Laboratory Tests Test 02/27/25 08:47 02/27/25 18:14 02/27/25 18:32 White Blood Count 10.2 Red Blood Count 5.51 Hemoglobin 17.0 Hematocrit 49.2 Mean Corpuscular Volume 89.3 Mean Corpuscular Hemoglobin 30.8 Mean Corpuscular Hemoglobin Concent 34.5 Red Cell Distribution Width 14.0 Platelet Count 280 Mean Platelet Volume 7.5 Neutrophils (%) (Auto) 79.8 H Lymphocytes (%) (Auto) 13.4 L Monocytes (%) (Auto) 6.2 Eosinophils (%) (Auto) 0.2 Basophils (%) (Auto) 0.4 Neutrophils # (Auto) 8.1 H Lymphocytes # (Auto) 1.4 Monocytes # (Auto) 0.6 Eosinophils # (Auto) 0.0 Basophils # (Auto) 0.0 CBC Comment Sodium Level 137 Potassium Level 4.3 Chloride Level 98 L Carbon Dioxide Level 21.1 L Anion Gap 18 H Blood Urea Nitrogen 14 Creatinine 0.82 Estimated GFR/1.73 m2 > 90 BUN/Creatinine Ratio 17.1 Glucose Level 118 H Lactic Acid Level 4.0 *H 1.4 Calcium Level 8.8 Total Bilirubin 0.7 Aspartate Amino Transf (AST/SGOT) 25 Alanine Aminotransferase (ALT/SGPT) 23 Alkaline Phosphatase 95 Total Protein 7.6 Albumin 3.8 Globulin 3.8 Albumin/Globulin Ratio 1.0 L Lipase 14 L Procalcitonin < 0.05 Chemistry Comments Urine Comment Medical Decision Making Findings Patient is seen today with complaints of acute nausea and vomiting and cyclic vomiting. Patient states he smokes a gram of marijuana each week and has done so for years. Patient denies any diarrhea or fevers or chills or chest pain or shortness of breath and has no new or other concern or complaint at this time. Patient states he feels his stomach is sensitive and hurting from dry heaving so much recently. Patient was given 10 mg Zyprexa IM, Compazine 10 mg IV, 3 L normal saline IV. Patient did have initial lactic acid elevated at 4.0. Lactic acid did decrease to 1.4 after administration of fluids. Patient states he is feeling much better and is ready to go home. Prescription of Zyprexa 10 mg tablets, one tab by mouth at night sent to patient's pharmacy. Patient will follow up with primary care as soon as possible for further eval and treatment. Prescription of the Zofran 4 mg ODT tablets 3 times a day to be taken as needed for nausea sent to patient pharmacy as well. Return to ED with any worsening, concerning or changing symptoms. Departure Disposition: 01 HOME / SELF CARE / HOMELESS Impression: Primary Impression: Cyclic vomiting syndrome Condition: Improved Discharge Instructions: Cyclic Vomiting Syndrome, Adult Additional Instructions: Patient was given 10 mg Zyprexa IM, Compazine 10 mg IV, 3 L normal saline IV. Patient did have initial lactic acid elevated at 4.0. Lactic acid did decrease to 1.4 after administration of fluids. Patient states he is feeling much better and is ready to go home. Prescription of Zyprexa 10 mg tablets, one tab by mouth at night sent to patient's pharmacy. Patient will follow up with primary care as soon as possible for further eval and treatment. Prescription of the Zofran 4 mg ODT tablets 3 times a day to be taken as needed for nausea sent to patient pharmacy as well. Return to ED with any worsening, concerning or changi ng symptoms. Referrals: NO PRIMARY CARE PROVIDER (PCP) Prescriptions ONDANSETRON ODT 4mg tablet (ONDANSETRON ODT) 4 Mg Tab.rapdis 4 MG PO BID for 7 Days, #14 TAB Prov: THALIA VIRK 02/27/25 Olanzapine (Zyprexa) 10 Mg Tablet 1 TAB PO HS for 30 Days, #30 TAB 0 Refills Prov: THALIA VIRK 02/27/25 Signature Scribe Signature: No scribe Attestation: No scribe THALIA VIRK February 27, 2025 14:43
[2025-02-27] MEDS: OLANZapine **IM** 10 mg inj. IM STA (16:23)
[2025-02-27] MEDS: normal saline 1000ml 1,000 ML IV STA ×3 (16:23→18:30)
[2025-02-27] MEDS: proCHLORperazine 10 MG/2 ml inj IV STA (16:24)
[2025-02-27 16:27] VITALS: TEMP 98.3
[2025-02-27] MEDS ORDERED: ONDA-243 PO (19:03)
[2025-02-27] MEDS ORDERED: OLAN10TA3 PO (19:03)
[2025-02-27 19:04] LABS: BILIRUBIN,URINE MODERATE (Neg); CLARITY,URINE CLEAR (Clear); COLOR,URINE YELLOW (Yellow); GLUCOSE, URINE NEGATIVE (Neg); KETONES,URINE >=80 mg/dl (Neg); LEUKOCYTE ESTERASE ,URINE NEGATIVE (Neg); OCCULT BLOOD,URINE NEGATIVE (Neg); PROTEIN,URINE 100 mg/dl (Neg)
[2025-02-27 19:08] LABS: UA COLLECTION TYPE CLN CATCH MIDSTREAM
[2025-02-27 19:20] VITALS: BP 142/77; PULSE 99; RESP 16; O2SAT 100
[2025-02-27 19:24] LABS: NITRITES, URINE POSITIVE (Neg)
[2025-02-27 19:25] LABS: BACTERIA,URINE 1+ /HPF (Neg); RBC,URINE NONE SEEN /HPF (0-2)
[2025-02-27 19:26] LABS: MUCUS STRANDS MODERATE /LPF (Neg); SQUAMOUS EPITHELIAL CELL,UR FEW /LPF (FEW)
== END 2025-02-27 19:23 | disposition home or self-care (01) ==
LOC: ER 08:29
DX: R11.15 Cyclical vomiting syndrome unrelated to migraine (principal); F17.200 Nicotine dependence, unspecified, uncomplicated; I10 Essential (primary) hypertension; F12.90 Cannabis use, unspecified, uncomplicated; F10.90 Alcohol use, unspecified, uncomplicated; F41.9 Anxiety disorder, unspecified; Z79.899 Other long term (current) drug therapy; Z87.442 Personal history of urinary calculi; Z98.890 Other specified postprocedural states; Y90.9 Presence of alcohol in blood, level not specified
CPT/HCPCS: 36415; 80053; 81001; 83605; 83690; 84145; 85025; 87088; 96361; 96372; 96374; 99285; J0780; J3490; J7030; 96375

== ENCOUNTER 2025-03-07 06:39 | Emergency (ER) | payer MEDICAID ==
[~2025-03-07] VITALS: Ht 162.6 cm; Wt 110.0 kg
[~2025-03-07 06:39] MED LIST changes: +OLAN10TA3 PO
[2025-03-07] MEDS: capsaicin 0.025% cream TP SCH (07:26)
[2025-03-07] MEDS: OLANZapine **IM** 10 mg inj. IM ONE ×2 (07:34→07:37)
[2025-03-07 08:15] LABS: BASOPHILS % (AUTO) 0.4 % (0-1); EOSINOPHILS # (AUTO) 0.1 X10'3 (0-0.9); EOSINOPHILS % (AUTO) 0.7 % (0-6); HEMATOCRIT 48.5 % (42.0-52.0); HEMOGLOBIN 16.8 g/dl (14.0-17.9); LYMPHOCYTES # (AUTO) 0.9 X10'3 (1.1-4.8); MEAN CORPUSCULAR HEMOGLOBIN 30.8 PG (27.0-31.0); MEAN CORPUSCULAR HGB CONC 34.7 g/dL (33.0-36.5); MEAN CORPUSCULAR VOLUME 88.8 FL (78-98); MEAN PLATELET VOLUME 7.1 FL (7.4-10.4); MONOCYTES % (AUTO) 13.7 % (2-12); NEUTROPHILS # (AUTO) 5.3 X10'3 (1.8-7.7); NEUTROPHILS % (AUTO) 73.2 % (42-75); PLATELET COUNT 265 X10'3 (140-440); RED BLOOD COUNT 5.46 X10'6 (4.70-6.10); RED CELL DISTRIBUTION WIDTH 14.5 % (11.5-14.5); WHITE BLOOD COUNT 7.3 X10'3 (4.5-11.0)
[2025-03-07 08:36] LABS: ALANINE AMINOTRANSFERASE 47 U/L (12-78); ALBUMIN 3.7 G/DL (3.4-5.0); ALKALINE PHOSPHATASE 79 IU/L (46-116); ANION GAP 13 (8-16); ASPARTATE AMINO TRANSFERASE 66 U/L (10-37); BILIRUBIN,TOTAL 0.9 MG/DL (0.1-1.0); BLOOD UREA NITROGEN 15 MG/DL (7-18); BUN/CREATININE RATIO 14.3 (10.0-20.0); CALCIUM 8.4 MG/DL (8.5-10.1); CHLORIDE 98 MMOL/L (99-107); CREATININE 1.05 MG/DL (0.60-1.10); GLUCOSE 114 MG/DL (70-104); LIPASE 18 U/L (16-77); POTASSIUM 3.9 MMOL/L (3.5-5.1); SODIUM 136 MMOL/L (135-145); TOTAL CARBON DIOXIDE 25.5 MMOL/L (24-32); TOTAL PROTEIN 7.3 G/DL (6.4-8.2); eCRCL 81 ML/MIN; eGFR 80 ML/MIN
[2025-03-07] MEDS: olanzapine 10mg tablet PO STA (09:12)
[2025-03-07 09:21] VITALS: TEMP 98.1
[2025-03-07 11:05] LABS: BILIRUBIN,URINE NEGATIVE (Neg); CLARITY,URINE SLIGHTLY CLOUDY (Clear); COLOR,URINE YELLOW (Yellow); GLUCOSE, URINE NEGATIVE (Neg); KETONES,URINE NEGATIVE (Neg); LEUKOCYTE ESTERASE ,URINE NEGATIVE (Neg); NITRITES, URINE NEGATIVE (Neg); OCCULT BLOOD,URINE NEGATIVE (Neg); PROTEIN,URINE NEGATIVE (Neg); UROBILINOGEN,URINE 0.2 E.U/dL (0.2-1.0)
[2025-03-07 11:10] LABS: UA COLLECTION TYPE NON-SPECIFIED
[2025-03-07 11:11] LABS: BACTERIA,URINE NONE SEEN /HPF (Neg); FINE GRANULAR CAST 0-3 /LPF (NEGATIVE); HYALINE CASTS 0-3 /LPF (NEGATIVE); MUCUS STRANDS MANY /LPF (Neg); RBC,URINE NONE SEEN /HPF (0-2); SQUAMOUS EPITHELIAL CELL,UR FEW /LPF (FEW); WBC,URINE 0-4 /HPF (0-4)
--- NOTE | 2025-03-07 11:25 | Physician Documentation ---
History of Present Illness ~ Chief Complaint: Abdominal Pain w/vomiting Stated Complaint: VOMITING Time Seen by MD: 08:33 Primary Medical Doctor: HENRIETTA FULTON Mode of Arrival: POV HPI Patient is seen today with complaints of cyclic vomiting and significant abdominal discomfort and nausea and vomiting. Patient states these Zyprexa that was prescribed previously has been helping however today he had some breakthrough nausea. Patient has no other concern or complaint at this time. He denies any fevers or chills or chest pain or shortness of breath or diarrhea. Medication Reconciliation Allergies: Coded Allergies: No Known Allergies (Unverified , 08/09/24) Scheduled Gabapentin (Gabapentin), 2 CAP PO TID Lisinopril (Lisinopril), 10 MG PO DAILY Naltrexone Hcl (Naltrexone Hcl), 1 TAB PO DAILY ONDANSETRON ODT 4mg tablet (Ondansetron Odt), 4 MG PO Q6H ONDANSETRON ODT 4mg tablet (Ondansetron Odt), 4 MG PO BID Olanzapine (Zyprexa), 1 TAB PO HS Pantoprazole Sodium (PROTONIX tablet), 1 TAB PO DAILY Potassium Chloride* (K-Dur*), 1 TAB PO DAILY Scheduled PRN Acetaminophen (Tylenol Extra Strength), 2 TAB PO Q6H PRN PRN for pain or fever, (Reported) ONDANSETRON ODT 4mg tablet (Ondansetron Odt), 1 TAB PO Q6H PRN PRN for nausea/vomiting Tizanidine Hcl (Tizanidine Hcl), 1 CAP PO Q6H PRN for pain, (Reported) Past Medical History Past Medical History: Hypertension, Gastritis, Hematuria, Kidney Stones, Anxiety Past Surgical History: orthopedic surgeries Patient History: FH: diabetes mellitus FATHER FH: thyroid condition MOTHER Smoking Status: Current every day smoker Alcohol Use: Heavy Drug Use: marijuana Occupation: employed Review of Systems Constitutional: Denies: chills, fever, weakness Eyes: Denies: pain, blurred vision ENT: Denies: ear pain, nose pain, throat pain, mouth pain Respiratory: Denies: cough, shortness of breath Cardiovascular: Denies: chest pain, palpitations Gastrointestinal: Denies: abdominal pain, nausea, vomiting Genitourinary: Denies: burning, dysuria Male Genitalia: Denies: penile discharge, testicular pain Neurological: Denies: headache, dizziness Musculoskeletal: Denies: pain, swelling Integumentary: Denies: rash, lesions Allergic/Immunologic: Denies: hives, itching Hematologic/Lymphatic: Denies: no symptoms reported Psychiatric: Denies: depression, anxiety Physical Exam Vital Signs: Temperature: 98.1, Source: Oral, Heart Rate: 79, Respiratory Rate: 20, BP: 162/112, Pulse Oximetry: 99, Weight: 110.000 Physical Exam General: Awake and Alert, no acute distress. HEENT: Conjunctiva pink, Sclera clear, Mucus Membranes moist. Neck: Supple without masses and tenderness. Resp: Unlabored. Lungs clear to auscultation bilaterally. Heart: Regular Rate and rhythm, normal S1 and S2 without murmur, rub or gallop. Abdomen: Soft and non tender no organomegaly Extremities: No cyanosis,clubbing or edema. Skin: Warm and Dry. Progress Results/Orders Results/Orders Completed Orders - THALIA VIRK Olanzapine Tablet (Zyprexa Tablet) (03/07/25 08:37) Medications Received in ER Medications (Trade) Dose Ordered Sig/Manju Route PRN Reason Start Time Stop Time Status Last Admin Dose Admin (ZyPREXA I.M. IM ONLY) 2.5 mg ONCE ONCE IM 03/07/25 07:00 03/07/25 07:01 DC 03/07/25 07:34 2.5 MG (Zostrix cream) 1 applic BID TP 03/07/25 08:00 03/07/25 07:26 1 APPLIC (Zyprexa tablet) 10 mg ONCE STAT PO 03/07/25 08:37 03/07/25 08:49 DC 03/07/25 09:12 10 MG Vital Signs 03/07/25 03/07/25 03/07/25 06:49 07:50 09:21 Temp 97.8 98.1 Pulse 100 79 Resp 18 20 B/P (MAP) 145/116 162/112 (129) Pulse Ox 97 99 Laboratory Tests Test 03/07/25 07:56 03/07/25 10:00 White Blood Count 7.3 Red Blood Count 5.46 Hemoglobin 16.8 Hematocrit 48.5 Mean Corpuscular Volume 88.8 Mean Corpuscular Hemoglobin 30.8 Mean Corpuscular Hemoglobin Concent 34.7 Red Cell Distribution Width 14.5 Platelet Count 265 Mean Platelet Volume 7.1 L Neutrophils (%) (Auto) 73.2 Lymphocytes (%) (Auto) 12.0 L Monocytes (%) (Auto) 13.7 H Eosinophils (%) (Auto) 0.7 Basophils (%) (Auto) 0.4 Neutrophils # (Auto) 5.3 Lymphocytes # (Auto) 0.9 L Monocytes # (Auto) 1.0 H Eosinophils # (Auto) 0.1 Basophils # (Auto) 0.0 CBC Comment Sodium Level 136 Potassium Level 3.9 Chloride Level 98 L Carbon Dioxide Level 25.5 Anion Gap 13 Blood Urea Nitrogen 15 Creatinine 1.05 Estimated GFR/1.73 m2 80 BUN/Creatinine Ratio 14.3 Glucose Level 114 H Calcium Level 8.4 L Total Bilirubin 0.9 Aspartate Amino Transf (AST/SGOT) 66 H Alanine Aminotransferase (ALT/SGPT) 47 Alkaline Phosphatase 79 Total Protein 7.3 Albumin 3.7 Globulin 3.6 Albumin/Globulin Ratio 1.0 L Lipase 18 Chemistry Comments Urine Specimen Description Non-specified Urine Color Yellow Urine Clarity Slightly cloudy Urine pH 6.0 Urine Specific [place] 1.025 Urine Protein Negative Urine Glucose (UA) Negative Urine Ketones Negative Urine Occult Blood Negative Urine Nitrite Negative Urine Bilirubin Negative Urine Urobilinogen 0.2 Urine Leukocyte Esterase Negative Urine RBC None seen Urine WBC 0-4 Urine Squamous Epithelial Cells Few Urine Bacteria None seen Urine Hyaline Casts 0-3 Urine Fine Granular Casts 0-3 Urine Mucus Many Urine Culture Indicated Not ind Volume Urine Centrifuged 10 ml Urine Comment Medical Decision Making Findings Patient is seen today with complaints of cyclic vomiting and significant abdominal discomfort and nausea and vomiting. Patient states these Zyprexa that was prescribed previously has been helping however today he had some breakthrough nausea. Patient has no other concern or complaint at this time. He denies any fevers or chills or chest pain or shortness of breath or diarrhea. He is given dose of Zyprexa 5 mg IM which gave him mild relief however another dose of Zyprexa 10 mg was given by mouth and patient admitted to much sit more significant relief. Patient states he is ready for discharge home. Patient was given prescription of Zyprexa 10 mg one tab by mouth twice a day to be taken as needed for nausea. I again highly recommended patient discontinue smoking marijuana. Patient voiced understanding. Patient will return to ED with any worsening, concerning or changing symptoms. Departure Disposition: 01 HOME / SELF CARE / HOMELESS Impression: Primary Impression: Cyclic vomiting syndrome Condition: Improved Discharge Instructions: Cyclic Vomiting Syndrome, Adult Additional Instructions: Patient was given dose of Zyprexa 5 mg IM which gave him mild relief however another dose of Zyprexa 10 mg was given by mouth and patient admitted to much sit more significant relief. Patient states he is ready for discharge home. Patient was given prescription of Zyprexa 10 mg one tab by mouth twice a day to be taken as needed for nausea. I again highly recommended patient discontinue smoking marijuana. Patient voiced understanding. Patient will return to ED with any worsening, concerning or changing symptoms. Referrals: NO PRIMARY CARE PROVIDER (PCP) Prescriptions Olanzapine (Zyprexa) 10 Mg Tablet 1 TAB PO BID for 30 Days, #60 TAB 0 Refills Prov: THALIA VIRK 03/07/25 Signature Scribe Signature: No scribe Attestation: No scribe THALIA VIRK March 07, 2025 11:25
[2025-03-07] MEDS ORDERED: OLAN10TA3 PO (11:33)
[2025-03-07 11:54] VITALS: BP 168/113; PULSE 78; RESP 15; O2SAT 99
== END 2025-03-07 11:55 | disposition home or self-care (01) ==
LOC: ER 06:39
DX: R11.15 Cyclical vomiting syndrome unrelated to migraine (principal); I10 Essential (primary) hypertension; F41.9 Anxiety disorder, unspecified; F12.90 Cannabis use, unspecified, uncomplicated; F17.200 Nicotine dependence, unspecified, uncomplicated; F10.90 Alcohol use, unspecified, uncomplicated; Z79.899 Other long term (current) drug therapy; Z87.442 Personal history of urinary calculi; Y90.9 Presence of alcohol in blood, level not specified
CPT/HCPCS: 36415; 80053; 81001; 83690; 85025; 96372; 99283; J3490

== ENCOUNTER 2025-03-22 16:05 | Emergency (ER) | payer MEDICAID ==
[~2025-03-22] VITALS: Ht 162.6 cm; Wt 118.2 kg
[2025-03-22 16:07] VITALS: BP 171/96; PULSE 119; RESP 22; TEMP 97.8; O2SAT 97
--- NOTE | 2025-03-22 16:16 | ELECTROCARDIOGRAPH REPORT ---
[facility] Test Date: 2025-03-22 Test Time: 16:12:42 Pat Name: JR TERRY Department: EMERGENCY ROOM Room: Gender: M Sink Maker: PRATIK : [id number] Requested By: CHINO CLIFFORD Order Number: [id number] Reading MD: Deni Bee Measurements Intervals [place] Rate: 125 P: 39 ID: [id number] QRS: 59 QRSD: 87 T: 4 QT: 309 QTc: 446 Interpretive Statements Sinus tachycardia Electronically Signed On 03-22-2025 17:52:50 PDT by Deni Bee Please click the below link to view image of tracing.
--- NOTE | 2025-03-22 16:37 | RADIOLOGY REPORT ---
CHEST RADIOGRAPH Indication: CP Technique: Single frontal view of the chest was obtained Comparison: None FINDINGS: The cardiac silhouette is unremarkable. The lungs demonstrate no pulmonary airspace consolidation. Th e pulmonary vasculature is unremarkable. There is no pleural effusion.. There is no pneumothorax. IMPRESSION: 1. No pulmonary airspace consolidation.
[2025-03-22 16:48] LABS: BASOPHILS # (AUTO) 0.1 X10'3 (0-0.2); BASOPHILS % (AUTO) 0.3 % (0-1); EOSINOPHILS % (AUTO) 0.1 % (0-6); HEMATOCRIT 53.5 % (42.0-52.0); HEMOGLOBIN 17.6 g/dl (14.0-17.9); LYMPHOCYTES # (AUTO) 1.2 X10'3 (1.1-4.8); LYMPHOCYTES % (AUTO) 7.6 % (21-51); MEAN CORPUSCULAR HEMOGLOBIN 29.6 PG (27.0-31.0); MEAN CORPUSCULAR HGB CONC 32.9 g/dL (33.0-36.5); MEAN CORPUSCULAR VOLUME 90.1 FL (78-98); MEAN PLATELET VOLUME 8.3 FL (7.4-10.4); MONOCYTES % (AUTO) 6.2 % (2-12); NEUTROPHILS # (AUTO) 13.3 X10'3 (1.8-7.7); NEUTROPHILS % (AUTO) 85.8 % (42-75); PLATELET COUNT 294 X10'3 (140-440); RED BLOOD COUNT 5.93 X10'6 (4.70-6.10); RED CELL DISTRIBUTION WIDTH 15.4 % (11.5-14.5); WHITE BLOOD COUNT 15.5 X10'3 (4.5-11.0)
== END 2025-03-22 19:56 | disposition left against medical advice (07) ==
LOC: ER 16:05
DX: R06.02 Shortness of breath (principal); Z53.21 Procedure and treatment not carried out due to patient leaving prior to being seen by health care provider
CPT/HCPCS: 36415; 71045; 83880; 84484; 85025; 93005

== ENCOUNTER 2025-04-16 08:34 | Emergency (ER) | payer MEDICAID ==
[~2025-04-16] VITALS: Ht 162.6 cm; Wt 117.8 kg
[2025-04-16 08:39] VITALS: TEMP 97.6
[2025-04-16 09:07] LABS: BASOPHILS # (AUTO) 0.1 X10'3 (0-0.2); BASOPHILS % (AUTO) 0.7 % (0-1); EOSINOPHILS % (AUTO) 0.3 % (0-6); HEMATOCRIT 48.9 % (42.0-52.0); HEMOGLOBIN 16.9 g/dl (14.0-17.9); LYMPHOCYTES # (AUTO) 1.4 X10'3 (1.1-4.8); LYMPHOCYTES % (AUTO) 14.1 % (21-51); MEAN CORPUSCULAR HGB CONC 34.6 g/dL (33.0-36.5); MEAN CORPUSCULAR VOLUME 89.7 FL (78-98); MONOCYTES # (AUTO) 0.8 X10'3 (0-0.9); MONOCYTES % (AUTO) 7.8 % (2-12); NEUTROPHILS # (AUTO) 7.9 X10'3 (1.8-7.7); NEUTROPHILS % (AUTO) 77.1 % (42-75); PLATELET COUNT 271 X10'3 (140-440); RED BLOOD COUNT 5.45 X10'6 (4.70-6.10); RED CELL DISTRIBUTION WIDTH 16.6 % (11.5-14.5); WHITE BLOOD COUNT 10.2 X10'3 (4.5-11.0)
[2025-04-16 09:29] LABS: ALANINE AMINOTRANSFERASE 154 U/L (12-78); ALBUMIN 3.4 G/DL (3.4-5.0); ALBUMIN/GLOBULIN RATIO 0.8 (1.1-1.5); ALKALINE PHOSPHATASE 101 IU/L (46-116); ANION GAP 17 (8-16); ASPARTATE AMINO TRANSFERASE 229 U/L (10-37); BILIRUBIN,TOTAL 1.7 MG/DL (0.1-1.0); BLOOD UREA NITROGEN 17 MG/DL (7-18); BUN/CREATININE RATIO 16.8 (10.0-20.0); CALCIUM 8.7 MG/DL (8.5-10.1); CHLORIDE 98 MMOL/L (99-107); CREATININE 1.01 MG/DL (0.60-1.10); GLUCOSE 114 MG/DL (70-104); LIPASE 23 U/L (16-77); POTASSIUM 3.8 MMOL/L (3.5-5.1); SODIUM 136 MMOL/L (135-145); TOTAL CARBON DIOXIDE 21.4 MMOL/L (24-32); TOTAL PROTEIN 7.8 G/DL (6.4-8.2); eCRCL 85 ML/MIN; eGFR 84 ML/MIN
[2025-04-16] MEDS: metoclopramide 5 mg/ml inj IV ONE (09:44)
[2025-04-16] MEDS: pantoprazole 40 MG vial IV ONE (09:45)
[2025-04-16] MEDS: normal saline 1000ML IV soln IV ONE (09:45)
[2025-04-16] MEDS: diphenhydrAMINE 50 mg/ml inj IV ONE (09:45)
--- NOTE | 2025-04-16 10:00 | Physician Documentation ---
History of Present Illness ~ Chief Complaint: Bloody Emesis Stated Complaint: CYCLICAL VOMITING Time Seen by MD: 08:48 OK to notify your PCP?: Yes Primary Medical Doctor: HENRIETTA FULTON Mode of Arrival: POV HPI This is a 34-year-old male patient with a history of hypertension, hematuria with kidney stone, cyclical vomiting and still smoking weed and cigarette came to the emergency room because of nausea vomiting since 02:30 today. He saw specks of blood in the emesis. He vomited the contents of the stomach and now he is retching. He takes gabapentin,one antidepressant drug , and lisinopril. No known drug allergies. No prior abdominal surgeries. Medication Reconciliation Allergies: Coded Allergies: No Known Allergies (Unverified , 03/22/25) Scheduled Gabapentin (Gabapentin), 2 CAP PO TID Lisinopril (Lisinopril), 10 MG PO DAILY Metoclopramide HCl (Reglan), 1 TAB PO Q6H Naltrexone Hcl (Naltrexone Hcl), 1 TAB PO DAILY ONDANSETRON ODT 4mg tablet (Ondansetron Odt), 4 MG PO Q6H ONDANSETRON ODT 4mg tablet (Ondansetron Odt), 4 MG PO BID Olanzapine (Zyprexa), 1 TAB PO HS Olanzapine (Zyprexa), 1 TAB PO BID Pantoprazole Sodium (PROTONIX tablet), 1 TAB PO DAILY Pantoprazole Sodium (PROTONIX tablet), 1 TAB PO DAILY Potassium Chloride* (K-Dur*), 1 TAB PO DAILY Scheduled PRN Acetaminophen (Tylenol Extra Strength), 2 TAB PO Q6H PRN PRN for pain or fever, (Reported) ONDANSETRON ODT 4mg tablet (Ondansetron Odt), 1 TAB PO Q6H PRN PRN for nausea/vomiting Tizanidine Hcl (Tizanidine Hcl), 1 CAP PO Q6H PRN for pain, (Reported) Past Medical History Past Medical History: Hypertension, Gastritis, Hematuria, Kidney Stones, Anxiety Past Surgical History: orthopedic surgeries Patient History: FH: diabetes mellitus FATHER FH: thyroid condition MOTHER Alcohol Use: Heavy Drug Use: marijuana Occupation: employed Review of Systems ROS As stated above in the HPI, otherwise all systems are reviewed and negative. Physical Exam Vital Signs: Temperature: 97.6, Source: Temporal, Heart Rate: 113, Respiratory Rate: 16, BP: 139/104, Pulse Oximetry: 98, Weight: 117.800 Physical Exam Reviewed vital signs and they are well within normal range. Const: Not in acute cardiopulmonary distress but constantly retching. BMI is 44.6. Head: Atraumatic Eyes: Normal Conjunctiva ENT: Normal External Ears, Nose and Mouth. Moist mucous membranes. Neck: Full range of motion. No meningismus Resp: Clear to auscultation bilaterally. Normal work of breathing Cardio: Regular rate and rhythm, no murmurs. Skin well perfused Abd: Soft, tenderness present, non-distended. Normal bowel sounds. No rebound or guarding Skin: No petechiae or rashes. Warm and dry Back: No midline or flank tenderness Ext: No cyanosis, or edema Neuro: Awake and alert Psych: Normal Mood and Affect Progress Results/Orders Results/Orders Orders - STELLA TEJADA MD Saline Lock (04/16/25 08:48) Ct Abdomen Pelvis (04/16/25 10:31) Completed Orders - STELLA TEJADA MD Cbc/Diff (04/16/25 08:44) BMP (04/16/25 08:44) Lipase (04/16/25 08:44) CMP (04/16/25 08:44) Normal Saline 1000ml (Sodium Chloride 10 (04/16/25 09:00) Diphenhydramine Inj (Benadryl Inj.) (04/16/25 09:00) Metoclopramide Inj (Reglan Inj) (04/16/25 09:00) Pantoprazole 40mg Iv (Protonix 40mg Iv) (04/16/25 09:00) Ct Abdomen Pelvis (04/16/25 10:31) Iohexol 300mg/Ml 100ml Inj. (Omnipaque-3 (04/16/25 10:24) Vital Signs 04/16/25 04/16/25 04/16/25 04/16/25 08:39 09:19 10:47 12:03 Temp 97.6 Pulse 113 85 82 Resp 16 18 16 B/P (MAP) 139/104 134/84 (101) 128/88 Pulse Ox 98 98 98 O2 Flow Rate 0 Laboratory Tests Test 04/16/25 08:55 White Blood Count 10.2 Red Blood Count 5.45 Hemoglobin 16.9 Hematocrit 48.9 Mean Corpuscular Volume 89.7 Mean Corpuscular Hemoglobin 31.0 Mean Corpuscular Hemoglobin Concent 34.6 Red Cell Distribution Width 16.6 H Platelet Count 271 Mean Platelet Volume 8.0 Neutrophils (%) (Auto) 77.1 H Lymphocytes (%) (Auto) 14.1 L Monocytes (%) (Auto) 7.8 Eosinophils (%) (Auto) 0.3 Basophils (%) (Auto) 0.7 Neutrophils # (Auto) 7.9 H Lymphocytes # (Auto) 1.4 Monocytes # (Auto) 0.8 Eosinophils # (Auto) 0.0 Basophils # (Auto) 0.1 CBC Comment Sodium Level 136 Potassium Level 3.8 Chloride Level 98 L Carbon Dioxide Level 21.4 L Anion Gap 17 H Blood Urea Nitrogen 17 Creatinine 1.01 Estimated GFR/1.73 m2 84 BUN/Creatinine Ratio 16.8 Glucose Level 114 H Calcium Level 8.7 Total Bilirubin 1.7 H Aspartate Amino Transf (AST/SGOT) 229 H Alanine Aminotransferase (ALT/SGPT) 154 H Alkaline Phosphatase 101 Total Protein 7.8 Albumin 3.4 Globulin 4.4 H Albumin/Globulin Ratio 0.8 L Lipase 23 Chemistry Comments Medical Decision Making Findings During the physical examination, the findings suggestive of acute life- threatening condition such as JVD, tracheal deviation, acidotic breathing, noisy stridorous breath sounds, pulses paradoxus, muffled heart sounds, unequal breath sounds, abdominal rigidity and rebound tenderness, focal neurological deficits, cool clammy skin, severe hypotension, severe tachycardia or bradycardia are absent. I think the patient is having cyclical vomiting and gastritis. I gave him IV hydration and metoclopramide and Protonix. We have done the CT scan of the abdomen pelvis with IV contrast. It is normal. The patient is going to be discharged home with PPI and metoclopramide. I told him that he needs to stay away from weed. Also from drugs. DISCLAIMER Inadvertent spelling and grammatical errors,inadvertent credit consultant errors,syntax errors, grammatical errors, and spelling errors are likely due to EMR/dictation software use and do not reflect on the overall quality of patient care. Note that the electronic time recorded on this note does not necessarily reflect the actual time of the patient encounter. Departure Disposition: 01 HOME / SELF CARE / HOMELESS Impression: Primary Impression: Cyclic vomiting syndrome Additional Impression: Acute gastritis Condition: Stable Discharge Instructions: Cyclic Vomiting Syndrome, Adult, Gastritis, Adult, [id number] Additional Instructions: Thank you for coming to our Emergency Department today. Please do not consume weed anymore and also consider very thoroughly about quitting all the drugs. Please ask your nurse or provider if you have questions about your care today and do not leave until all your questions have been answered. Please use any medications given as directed and follow-up with your doctor (or the doctor you were referred to) in the next 1-3 days. Your primary care doctor can help to coordinate outpatient specialty care and provide authorization for specialty referral as needed. If you do not have a primary care doctor you may follow up at a [facility]. You may also use motrin and tylenol as needed for fever and/or pain unless instructed otherwise by your provider or nurse. Indications for more urgent follow-up have been discussed, but you may return to the [facility] at ANY time for any worrisome or worsening symptoms. Referrals: NO PRIMARY CARE PROVIDER (PCP) Prescriptions Pantoprazole Sodium (PROTONIX tablet) 40 Mg Tablet.dr 1 TAB PO DAILY for 30 Days, #30 TAB 0 Refills Prov: STELLA TEJADA MD 04/16/25 Metoclopramide HCl (Reglan) 10 Mg Tablet 1 TAB PO Q6H, #60 TAB 0 Refills before food and bedtime Prov: STELLA TEJADA MD 04/16/25 Education Educated: Patient Educated regarding: diagnosis, treatment, prognosis, need for follow up Signature Scribe Signature: x Attestation: My dictation STELLA TEJADA MD Apr 16, 2025 10:00
[2025-04-16] MEDS ORDERED: iohexol 300mg/ml 100ml inj. ONE (10:24)
--- NOTE | 2025-04-16 10:56 | RADIOLOGY REPORT ---
CT abdomen and pelvis with IV contrast INDICATION: vomiting;bloody emesis;abdominal pain Comparison: 11/11/2024 TECHNIQUE: Serial axial images were performed through the abdomen and pelvis and then reformatted in the sagittal and coronal plane. All CT scans at this medical facility are performed using dose modula tion techniques as appropriate to a performed exam including the following: Automated exposure contro l was utilized; adjustment of the MA and/or KvP according to patient size; and use of iterative recon struction technique. FINDINGS: Lung bases clear. Liver and spleen normal in size without mass. Fatty infiltration of the liver Bilateral renal concentration and excretion without stone or hydronephrosis. 1.5 cm cyst in the lower pole of the left kidney. No gallstones or dilated intrahepatic bile ducts There is no evidence of bowel obstruction. No free fluid. No signs of appendicitis In the pelvis the bladder is smooth walled. There are no abnormal masses or fluid collections. No enl arged lymph nodes. No hernia sacs. IMPRESSION: 1. Normal CT abdomen and pelvis Computed Tomographic Radiation Dosimetry Report: Total CTDI vol = 35 mGy Total DLP = 1897 mGy-cm Low dose protocols were performed.
[2025-04-16] MEDS ORDERED: PANT-47 PO (11:37)
[2025-04-16] MEDS ORDERED: METO-292 PO (11:37)
[2025-04-16 12:03] VITALS: BP 128/88; PULSE 82; RESP 16; O2SAT 98
== END 2025-04-16 12:05 | disposition home or self-care (01) ==
LOC: ER 08:35
DX: K29.00 Acute gastritis without bleeding (principal); I10 Essential (primary) hypertension; F12.90 Cannabis use, unspecified, uncomplicated
CPT/HCPCS: 36415; 74177; 80053; 83690; 85025; 96365; 96375; 99285; J1200; J2470; J2765; J7030; Q9967

== ENCOUNTER 2025-06-12 01:24 | Emergency (ER) | payer MEDICAID ==
[~2025-06-12] VITALS: Ht 162.6 cm; Wt 108.2 kg
[~2025-06-12 01:24] MED LIST changes: +METO-292 PO
[2025-06-12 01:53] LABS: MEAN PLATELET VOLUME 8.1 FL (7.4-10.4); RED CELL DISTRIBUTION WIDTH 15.1 % (11.5-14.5)
[2025-06-12 02:03] LABS: CREATININE 1.39 MG/DL (0.60-1.10); TOTAL CARBON DIOXIDE 20.3 MMOL/L (24-32); eCRCL 62 ML/MIN; eGFR 58 ML/MIN
--- NOTE | 2025-06-12 02:48 | Physician Documentation ---
History of Present Illness ~ Chief Complaint: Abdominal Pain Stated Complaint: VOMITING Time Seen by MD: 02:41 Primary Medical Doctor: HENRIETTA [facility]ULTON [facility] Patient presents to the emergency room with 12 hour history of vomiting. He has history of cyclic vomiting syndrome. He has had no antiemetics for his nausea but he did take a tablet if Protonix. He does not take Protonix daily. No fevers Medication Reconciliation Allergies: Coded Allergies: No Known Allergies (Unverified , 06/12/25) Scheduled Gabapentin (Gabapentin), 2 CAP PO TID Lisinopril (Lisinopril), 10 MG PO DAILY Metoclopramide HCl (Reglan), 1 TAB PO Q6H Naltrexone Hcl (Naltrexone Hcl), 1 TAB PO DAILY ONDANSETRON ODT 4mg tablet (Ondansetron Odt), 4 MG PO Q6H ONDANSETRON ODT 4mg tablet (Ondansetron Odt), 4 MG PO BID Olanzapine (Zyprexa), 1 TAB PO HS Olanzapine (Zyprexa), 1 TAB PO BID Pantoprazole Sodium (PROTONIX tablet), 1 TAB PO DAILY Pantoprazole Sodium (PROTONIX tablet), 1 TAB PO DAILY Potassium Chloride* (K-Dur*), 1 TAB PO DAILY Scheduled PRN Acetaminophen (Tylenol Extra Strength), 2 TAB PO Q6H PRN PRN for pain or fever, (Reported) ONDANSETRON ODT 4mg tablet (Ondansetron Odt), 1 TAB PO Q6H PRN PRN for nausea/vomiting Tizanidine Hcl (Tizanidine Hcl), 1 CAP PO Q6H PRN for pain, (Reported) Past Medical History Past Medical History: Hypertension, Gastritis, Hematuria, Kidney Stones, Anxiety Past Surgical History: orthopedic surgeries Patient History: FH: diabetes mellitus FATHER FH: thyroid condition MOTHER Alcohol Use: Heavy Drug Use: marijuana Occupation: employed Review of Systems ROS All review of systems negative except as per HPI Physical Exam Vital Signs: Temperature: 96.3, Heart Rate: 118, Respiratory Rate: 17, BP: 166/104, Pulse Oximetry: 98, Weight: 108.250 Physical Exam General: Patient is awake, alert, oriented x4 in mild distress vomiting Head: Normocephalic and atraumatic. Eyes: Conjunctival normal. EOMI. PERRL. ENT: Mucous membranes moist. Neck: Supple, trachea is midline. Chest: Clear to auscultation bilaterally without rales, rhonchi, or wheezes. There is no accessory muscle use or retractions. Cardiac: Tachycardic and regular without murmurs, gallops, or rubs. Abd: Soft, nondistended, nontender, with normoactive bowel sounds. No guarding, rebound, or rigidity. Progress Results/Orders Results/Orders Orders - NAVEEN RODRIGUEZ MD Urinalysis, Cult If Indicated (06/12/25 01:31) Completed Orders - NAVEEN RODRIGUEZ MD Cbc/Diff (06/12/25 01:) BMP (06/12/25:) Lipase (06/12/25:) CMP (06/12/25 01:31) Normal Saline 1000ml (0.9% Sodium Chlori (06/12/25 02:45) Ondansetron Inj. (Zofran 4mg/2ml Vial) (06/12/25 02:45) Metoclopramide Inj (Reglan Inj) (06/12/25 02:45) Diphenhydramine Inj (Benadryl Inj.) (06/12/25 02:45) Haloperidol Lact. (Haldol) (06/12/25 02:45) Metoclopramide Inj (Reglan Inj) (06/12/25 03:45) Medications Received in ER Medications (Trade) Dose Ordered Sig/Manju Route PRN Reason Start Time Stop Time Status Last Admin Dose Admin Sodium Chloride 1,000 ml @ 1,000 mls/hr ONCE ONCE IV 06/12/25 02:45 06/12/25 03:44 DC 06/12/25 03:23 1,000 MLS/HR (Zofran 4mg/2ml vial) 8 mg ONCE ONCE IV 06/12/25 02:45 06/12/25 02:47 DC 06/12/25 03:23 8 MG (Reglan inj) 10 mg ONCE ONCE IV 06/12/25 02:45 06/12/25 02:47 DC 06/12/25 03:23 10 MG (Benadryl inj.) 25 mg ONCE ONCE IV 06/12/25 02:45 06/12/25 02:49 DC 06/12/25 03:23 25 MG (Haldol) 2 mg ONCE ONCE IVH 06/12/25 02:45 06/12/25 02:49 DC 06/12/25 03:22 2 MG (Reglan inj) 10 mg ONCE ONCE IV 06/12/25 03:45 06/12/25 03:51 DC 06/12/25 03:56 10 MG Vital Signs 06/12/25 06/12/25 06/12/25 01:27 01:50 01:50 Temp 96.3 Pulse 118 122 Resp 17 20 16 B/P (MAP) 166/104 179/112 (134) Pulse Ox 98 99 Laboratory Tests Test 06/12/25 01:39 White Blood Count 16.9 H Red Blood Count 4.70 Hemoglobin 15.7 Hematocrit 45.1 Mean Corpuscular Volume 96.0 Mean Corpuscular Hemoglobin 33.5 H Mean Corpuscular Hemoglobin Concent 34.9 Red Cell Distribution Width 15.1 H Platelet Count 275 Mean Platelet Volume 8.1 Neutrophils (%) (Auto) 79.9 H Lymphocytes (%) (Auto) 11.8 L Monocytes (%) (Auto) 7.5 Eosinophils (%) (Auto) 0 Basophils (%) (Auto) 0.8 Neutrophils # (Auto) 13.5 H Lymphocytes # (Auto) 2.0 Monocytes # (Auto) 1.3 H Eosinophils # (Auto) 0.0 Basophils # (Auto) 0.1 CBC Comment Sodium Level 137 Potassium Level 3.2 L Chloride Level 98 L Carbon Dioxide Level 20.3 L Anion Gap 19 H Blood Urea Nitrogen 12 Creatinine 1.39 H Estimated GFR/1.73 m2 58 BUN/Creatinine Ratio 8.6 L Glucose Level 148 H Calcium Level 8.7 Total Bilirubin 1.5 H Aspartate Amino Transf (AST/SGOT) 38 H Alanine Aminotransferase (ALT/SGPT) 31 Alkaline Phosphatase 82 Total Protein 8.0 Albumin 3.8 Globulin 4.2 Albumin/Globulin Ratio 0.9 L Lipase 15 L Chemistry Comments Medical Decision Making Findings Patient presented to the emergency room with vomiting. Differentials include but are not limited to cyclic vomiting syndrome, dehydration, acute kidney injury, electrolyte disturbances therefore emergent labs and imaging indicated. Labs were reassuring for no acute kidney injury or significant dehydration. He has received IV fluids. Noted leukocytosis however given patient's history in comparison to previous labs during cyclic vomiting episodes I do not believe this is infectious in nature but reactive. Patient is feeling much better and asking to leave. Departure Disposition: 01 HOME / SELF CARE / HOMELESS Impression: Primary Impression: Cyclic vomiting syndrome Condition: Improved Discharge Instructions: Cyclic Vomiting Syndrome, Adult Referrals: NO PRIMARY CARE PROVIDER (PCP) Prescriptions Ondansetron 8mg ODT (Ondansetron Odt) 8 Mg Tab.rapdis 1 TAB PO Q6H for nausea/vomiting for 3 Days, #12 TAB 0 Refills Prov: NAVEEN RODRIGUEZ MD 06/12/25 Education Educated: Patient Educated regarding: diagnosis, treatment, need for follow up Signature Scribe Signature: No scribe Attestation: The note accurately reflects work and decisions made by me.Naveen Rodriguez MD 06/12/25 04:59 NAVEEN RODRIGUEZ MD Jun 12, 2025 02:48
[2025-06-12] MEDS: haloperidol lactate 5mg/ml inj IVH ONE (03:22)
[2025-06-12] MEDS: ondansetron/PF 4mg/2ml inj IV ONE (03:23)
[2025-06-12] MEDS: normal saline 1000ml 1,000 ML IV ONE (03:23)
[2025-06-12] MEDS: metoclopramide 5 mg/ml inj IV ONE ×2 (03:23→03:56)
[2025-06-12 04:00] VITALS: TEMP 98.1
[2025-06-12] MEDS ORDERED: ONDA-245 PO (04:59)
[2025-06-12 05:21] VITALS: BP 155/80; PULSE 84; RESP 16; O2SAT 99
[2025-06-12] MEDS ORDERED: LORA-269 PO (11:22)
[2025-06-12] MEDS ORDERED: GABA-535 PO (11:22)
[2025-06-12] MEDS ORDERED: METO-292 PO (11:22)
== END 2025-06-12 05:25 | disposition home or self-care (01) ==
LOC: ER 01:24
DX: R11.15 Cyclical vomiting syndrome unrelated to migraine (principal); I10 Essential (primary) hypertension; F41.9 Anxiety disorder, unspecified; F12.90 Cannabis use, unspecified, uncomplicated; Z79.899 Other long term (current) drug therapy; Z87.442 Personal history of urinary calculi
CPT/HCPCS: 36415; 80053; 83690; 85025; 96361; 96374; 96375; 99284; J1200; J1630; J2405; J2765; J7030

== ENCOUNTER 2025-06-12 10:20 | Emergency (ER) | payer MEDICAID ==
[~2025-06-12] VITALS: Ht 162.6 cm; Wt 120.5 kg
[~2025-06-12 10:20] MED LIST changes: +ONDA-245 PO
[2025-06-12 10:47] VITALS: BP 102/63; PULSE 88; RESP 16; O2SAT 97
[2025-06-12] MEDS ORDERED: GABA-535 PO (11:22)
[2025-06-12] MEDS ORDERED: METO-292 PO (11:22)
[2025-06-12] MEDS ORDERED: LORA-269 PO (11:22)
--- NOTE | 2025-06-12 11:23 | Physician Documentation ---
History of Present Illness ~ Chief Complaint: Medical Clearance Stated Complaint: MED CLEARENCE FOR DETOX Time Seen by MD: 11:11 Primary Medical Doctor: HENRIETTA FULTON KENDELL 34-year-old male was recently seen this morning for medications to help with alcohol withdrawal. Patient states that he has stopped drinking approximately 12 hours ago. Drinks a 5th of vodka per day. Patient picked up his Zofran but still is having some stomach cramping and nausea. Patient is unaware if ever had withdrawals in the past. Denies any seizure history. Patient does not have a rehab facility at this time Tetanus within 5 years?: No Medication Reconciliation Allergies: Coded Allergies: No Known Allergies (Unverified , 06/12/25) Scheduled Gabapentin (Gabapentin), 2 CAP PO TID Lisinopril (Lisinopril), 10 MG PO DAILY Metoclopramide HCl (Reglan), 1 TAB PO Q6H Naltrexone Hcl (Naltrexone Hcl), 1 TAB PO DAILY ONDANSETRON ODT 4mg tablet (Ondansetron Odt), 4 MG PO Q6H ONDANSETRON ODT 4mg tablet (Ondansetron Odt), 4 MG PO BID Olanzapine (Zyprexa), 1 TAB PO HS Olanzapine (Zyprexa), 1 TAB PO BID Ondansetron 8mg ODT (Ondansetron Odt), 1 TAB PO Q6H Pantoprazole Sodium (PROTONIX tablet), 1 TAB PO DAILY Pantoprazole Sodium (PROTONIX tablet), 1 TAB PO DAILY Potassium Chloride* (K-Dur*), 1 TAB PO DAILY Scheduled PRN Acetaminophen (Tylenol Extra Strength), 2 TAB PO Q6H PRN PRN for pain or fever, (Reported) ONDANSETRON ODT 4mg tablet (Ondansetron Odt), 1 TAB PO Q6H PRN PRN for nausea/vomiting Tizanidine Hcl (Tizanidine Hcl), 1 CAP PO Q6H PRN for pain, (Reported) Past Medical History Past Medical History: Hypertension, Gastritis, Hematuria, Kidney Stones, Anxiety Past Surgical History: orthopedic surgeries Patient History: FH: diabetes mellitus FATHER FH: thyroid condition MOTHER Alcohol Use: Heavy Drug Use: marijuana Occupation: employed Physical Exam Vital Signs: Temperature: 96.9, Source: Temporal, Heart Rate: 88, Respiratory Rate: 16, BP: 102/63, Pulse Oximetry: 97, Weight: 120.450 Progress Results/Orders Results/Orders Vital Signs 06/12/25 10:47 Temp 96.9 Pulse 88 Resp 16 B/P (MAP) 102/63 Pulse Ox 97 Departure Time of Disposition: 11:20 Disposition: 01 HOME / SELF CARE / HOMELESS Impression: Primary Impression: General medical exam Additional Impressions: Alcohol use disorder Alcoholic gastritis Condition: Stable Discharge Instructions: Medical Screening Exam Additional Instructions: Take medications as prescribed follow up with primary care as well as some facilities for rehab Referrals: NO PRIMARY CARE PROVIDER (PCP) Prescriptions Gabapentin (Gabapentin) 400 Mg Capsule 1 CAP PO Q8H for 30 Days, #90 CAP 0 Refills Prov: JYOTI IRAHETA NP 06/12/25 Metoclopramide HCl (Reglan) 10 Mg Tablet 1 TAB PO Q8H for 10 Days, #30 TAB 0 Refills before food and bedtime Prov: JYOTI IRAHETA NP 06/12/25 Lorazepam (Ativan) 1 Mg Tablet 1 TAB PO Q8H for ETOH Withdraw for 10 Days, #30 TAB 0 Refills Prov: JYOTI IRAHETA NP 06/12/25 Education Educated: Patient Educated regarding: diagnosis, treatment, need for follow up Signature Scribe Signature: No scribe Attestation: The note accurately reflects work and decisions made by me.Jyoti LUCIANO 06/12/25 11:23 JYOTI IRAHETA NP Jun 12, 2025 11:23
[2025-06-12 11:27] VITALS: TEMP 96.9
== END 2025-06-12 11:29 | disposition home or self-care (01) ==
LOC: ER 10:20
DX: K29.20 Alcoholic gastritis without bleeding (principal); F10.239 Alcohol dependence with withdrawal, unspecified; F41.9 Anxiety disorder, unspecified; F12.90 Cannabis use, unspecified, uncomplicated; I10 Essential (primary) hypertension; Z79.899 Other long term (current) drug therapy; Z87.442 Personal history of urinary calculi; Y90.9 Presence of alcohol in blood, level not specified
CPT/HCPCS: 99283

== ENCOUNTER 2025-06-25 21:45 | Emergency (ER) | payer MEDICAID ==
[~2025-06-25] VITALS: Ht 162.6 cm; Wt 125.0 kg
[~2025-06-25 21:45] MED LIST changes: +LORA-269 PO
[2025-06-25 22:24] LABS: MEAN PLATELET VOLUME 7.4 FL (7.4-10.4); RED CELL DISTRIBUTION WIDTH 14.6 % (11.5-14.5)
[2025-06-25] MEDS: normal saline 1000ML IV soln IVB ONE (22:26)
[2025-06-25 22:38] LABS: CREATININE 1.58 MG/DL (0.60-1.10); ETHANOL < 10 MG/DL (<10); TOTAL CARBON DIOXIDE 24.7 MMOL/L (24-32); eCRCL 54 ML/MIN; eGFR 50 ML/MIN
--- NOTE | 2025-06-25 22:39 | RADIOLOGY REPORT ---
EXAM: DI CHEST,SINGLE VIEW CLINICAL HISTORY: aloc TECHNIQUE: Single AP view of the chest WID: COMPARISON: DI CHEST,SINGLE VIEW on DOS: 03/22/25 FINDINGS: Lines and tubes: None Chest: The heart size and pulmonary vasculature is within normal limits. No pleural effusion, pneumothorax, or consolidation. The osseous structures are grossly intact. IMPRESSION: 1. No acute cardiopulmonary abnormality.
--- NOTE | 2025-06-26 02:49 | Physician Documentation ---
History of Present Illness ~ Chief Complaint: ETOH Stated Complaint: ABDOMINAL PAIN Time Seen by MD: 22:00 Primary Medical Doctor: HENRIETTA FULTON Source: patient, EMS Mode of Arrival: EMS Exam Limitations: no limitations HPI Chief Complaint: Abdominal pain Caveat: None Independent Historians: Paramedics History of Present Illness: Patient is a 34-year-old man brought in by paramedics from home complaining of abdominal pain that began at 6:00 a.m.. Patient's last drink was at 4:00 a.m.. Paramedics gave Tylenol 1 g IV and Zofran 8 mg IV. Patient states he drinks at least a gal of vodka a day. Review of systems: All systems were reviewed and are negative except for what is indicated in the history of present illness. Past Medical History: Cyclic vomiting, substance and alcohol use disorder Past Surgical History: Noncontributory Social History: Daily alcohol use, marijuana use Medications: Reviewed as documented Nursing Notes Allergies: Reviewed as documented in Nursing Notes Tetanus within 5 years?: No Medication Reconciliation Allergies: Coded Allergies: No Known Allergies (Unverified , 06/25/25) Scheduled Chlordiazepoxide Hcl (Librium), 25 MG PO DIRECTED Gabapentin (Gabapentin), 2 CAP PO TID Gabapentin (Gabapentin), 1 CAP PO Q8H Lisinopril (Lisinopril), 10 MG PO DAILY Lorazepam (Ativan), 1 TAB PO Q8H Metoclopramide HCl (Reglan), 1 TAB PO Q6H Metoclopramide HCl (Reglan), 1 TAB PO Q8H Naltrexone Hcl (Naltrexone Hcl), 1 TAB PO DAILY ONDANSETRON ODT 4mg tablet (Ondansetron Odt), 4 MG PO Q6H ONDANSETRON ODT 4mg tablet (Ondansetron Odt), 4 MG PO BID Olanzapine (Zyprexa), 1 TAB PO HS Olanzapine (Zyprexa), 1 TAB PO BID Ondansetron 8mg ODT (Ondansetron Odt), 1 TAB PO Q6H Pantoprazole Sodium (PROTONIX tablet), 1 TAB PO DAILY Pantoprazole Sodium (PROTONIX tablet), 1 TAB PO DAILY Potassium Chloride* (K-Dur*), 1 TAB PO DAILY Scheduled PRN Acetaminophen (Tylenol Extra Strength), 2 TAB PO Q6H PRN PRN for pain or fever, (Reported) ONDANSETRON ODT 4mg tablet (Ondansetron Odt), 1 TAB PO Q6H PRN PRN for nausea/vomiting Tizanidine Hcl (Tizanidine Hcl), 1 CAP PO Q6H PRN for pain, (Reported) Past Medical History Past Medical History: Hypertension, Gastritis, Hematuria, Kidney Stones, Anxiety Past Surgical History: orthopedic surgeries Patient History: FH: diabetes mellitus FATHER FH: thyroid condition MOTHER Alcohol Use: Heavy Drug Use: marijuana Occupation: employed Review of Systems All Other Systems at this time: Reviewed and Negative ROS Patient denies any other acute symptoms other than above. All other systems are negative Physical Exam Vital Signs: RN Vital Signs have been reviewed: Yes, Temperature: 98.3, Source: Oral, Heart Rate: 94, Respiratory Rate: 12, BP: 133/82, Pulse Oximetry: 95, Weight: 125.000 Pulse Oximetry Reflects: adequate oxygenation Physical Exam General Appearance: Moderate distress HEENT: Normal OP, moist oral mucosa, PERRL, EOMI Neck: supple, normal ROM, trachea midline Pulmonary: No respiratory distress, CTA, BS equal Cardiac: RRR, no murmur, rub or gallop, GI: nondistended, soft, nontender, normal bowel sounds, no guarding, no rebound Extremities: normal ROM, no swelling, non-tender Skin: intact, dry, warm, no rashes Neuro: AAOx3, speech is clear, no focal motor weakness Psych: normal affect, good eye contact, no apparent hallucination, normal speech Progress Results/Orders Results/Orders Orders - AYE BLAND MD Electrocardiogram (06/25/25 22:00) Accucheck (06/25/25 22:00) Chest,Single View (06/25/25 22:00) Monitor (06/25/25 22:00) Saline Lock (06/25/25 22:00) * Npo Until Passed Bedside Swa (06/25/25 22:00) Nursing Swallow Screen (06/25/25 22:00) Completed Orders - AYE BLAND MD Cbc/Diff (06/25/25 22:00) Urinalysis, Cult If Indicated (06/25/25 22:00) Chest,Single View (9/4/25 22:00) Ethanol (06/25/25 22:00) Drug Screen, Urine (06/25/25 22:00) Normal Saline 1000ml (0.9% Sodium Chlori (06/25/25 22:00) CMP (06/25/25 22:00) Phenobarbital Inj (Phenobarbital Inj.) (06/25/25 22:00) Ondansetron Inj. (Zofran 4mg/2ml Vial) (06/26/25 04:20) Normal Saline 1000ml (0.9% Sodium Chlori (06/26/25 04:20) Morphine 10mg/Ml Inj. (Morphine Inj.) (06/26/25 04:20) Mag & Alum Hydrox/Simeth Susp (Maalox Or (06/26/25 04:20) Sucralfate Tablet (Carafate Tablet) (06/26/25 04:20) Lidocaine 2% Viscous (Xylocaine 2% Visco (06/26/25 04:20) Chlordiazepoxide Capsule (Librium Capsul (06/26/25 05:35) Medications Received in ER Medications (Trade) Dose Ordered Sig/Manju Route PRN Reason Start Time Stop Time Status Last Admin Dose Admin (0.9% sodium chloride (NS) 1000ml IV soln) 1,000 ml ONCE ONCE IVB 06/25/25 22:00 06/25/25 22:02 DC 06/25/25 22:26 1,000 ML (phenoBARBITAL inj.) 130 mg ONCE ONCE IV 06/25/25 22:00 06/25/25 22:02 DC 06/25/25 22:15 130 MG (Zofran 4mg/2ml vial) 4 mg ONCE ONCE IV 06/26/25 04:20 06/26/25 04:21 DC 06/26/25 04:37 4 MG (0.9% sodium chloride (NS) 1000ml IV soln) 1,000 ml ONCE ONCE IVB 06/26/25 04:20 06/26/25 04:25 DC 06/26/25 04:30 1,000 ML (morphine inj.) 8 mg ONCE ONCE IV 06/26/25 04:20 06/26/25 04:21 DC 06/26/25 04:39 8 MG (Maalox oral suspension) 30 ml ONCE ONCE PO 06/26/25 04:20 06/26/25 04:21 DC 06/26/25 04:32 30 ML (Carafate tablet) 1 gm ONCE ONCE PO 06/26/25 04:20 06/26/25 04:21 DC 06/26/25 04:34 1 GM (Xylocaine 2% Viscous 15mL cup) 20 ml ONCE ONCE MM 06/26/25 04:20 06/26/25 04:21 DC 06/26/25 04:33 20 ML Vital Signs 06/25/25 06/25/25 06/25/25 06/25/25 21:50 21:54 22:40 23:00 Temp 98.3 98.3 98.3 Pulse 115 92 92 Resp 20 20 16 13 B/P (MAP) 155/129 132/83 (99) 112/78 (89) Pulse Ox 97 96 98 06/26/25 06/26/25 06/26/25 00:15 01:42 04:39 Temp 98.3 98.3 Pulse 89 94 Resp 13 12 16 B/P (MAP) 119/75 (90) 133/82 (99) Pulse Ox 96 95 Laboratory Tests Test 06/25/25 22:19 06/25/25 23:52 06/26/25 03:55 White Blood Count 10.5 Red Blood Count 4.20 L Hemoglobin 13.9 L Hematocrit 40.5 L Mean Corpuscular Volume 96.5 Mean Corpuscular Hemoglobin 33.2 H Mean Corpuscular Hemoglobin Concent 34.4 Red Cell Distribution Width 14.6 H Platelet Count 247 Mean Platelet Volume 7.4 Neutrophils (%) (Auto) 75.1 H Lymphocytes (%) (Auto) 13.7 L Monocytes (%) (Auto) 10.2 Eosinophils (%) (Auto) 0.6 Basophils (%) (Auto) 0.4 Neutrophils # (Auto) 7.9 H Lymphocytes # (Auto) 1.4 Monocytes # (Auto) 1.1 H Eosinophils # (Auto) 0.1 Basophils # (Auto) 0.0 CBC Comment Sodium Level 135 Potassium Level 3.1 L Chloride Level 99 Carbon Dioxide Level 24.7 Anion Gap 11 Blood Urea Nitrogen 10 Creatinine 1.58 H Estimated GFR/1.73 m2 50 BUN/Creatinine Ratio 6.3 L Glucose Level 121 H Calcium Level 8.6 Total Bilirubin 1.0 Aspartate Amino Transf (AST/SGOT) 28 Alanine Aminotransferase (ALT/SGPT) 30 Alkaline Phosphatase 61 Total Protein 7.4 Albumin 3.5 Globulin 3.9 Albumin/Globulin Ratio 0.9 L Chemistry Comments Ethyl Alcohol Level < 10 Glucometer 117 H Urine Specimen Description Non-specified Urine Color Yellow Urine Clarity Clear Urine pH 5.5 Urine Specific [place] 1.015 Urine Protein Negative Urine Glucose (UA) Negative Urine Ketones 15 H Urine Occult Blood Negative Urine Nitrite Negative Urine Bilirubin Negative Urine Urobilinogen 0.2 Urine Leukocyte Esterase Negative Urine Culture Indicated Not ind Volume Urine Centrifuged 10 ml Urine Comment Urine Opiates Screen Negative Urine Methadone Screen Negative Urine Fentanyl Screen Negative Urine Barbiturates Screen Negative Urine Phencyclidine Screen Negative Urine Amphetamines Screen Negative Urine Benzodiazepines Screen Negative Urine Cocaine Screen Negative Urine Cannabinoids Screen Positive Drug Screen Comment Medical Decision Making Findings Differential diagnosis includes but is not limited to: Alcohol intoxication, alcohol withdrawal, alcoholic ketoacidosis, alcoholic gastritis, alcoholic hepatitis, duodenitis, upper GI bleed, dehydration, electrolyte abnormalities EKG independent interpretation: Performed at 10:11 p.m., sinus tachycardia, heart rate 108, normal axis, normal ST segments Chest x-ray, single view, indication: Tachycardia Independent interpretation: Lungs are clear, normal mediastinum, normal cardiac silhouette. No acute cardiopulmonary process Laboratory data independent interpretation: CBC: Unremarkable, mild anemia with a hemoglobin of 13.9 CMP: Mild hypokalemia with a potassium of 3.1, elevated creatinine of 1.58. Previous creatinine on June 12 was 1.39 earlier in the year was normal. Toxicology: Blood alcohol less than 10 Emergency department course/medical decision-making: Patient presents with acute abdominal pain. Patient drinks alcohol daily. Patient does not appear to be intoxicated but appears to be in mild alcohol withdrawal. Patient is given 1 L of normal saline and phenobarb 130 mg IV. Patient's anion gap is normal. No evidence for alcoholic ketoacidosis. LFTs are normal. Patient was given morphine for his abdominal pain along with the GI cocktail. And is feeling better. Patient is given Librium 100 mg p.o. prior to discharge for likely recurrent alcohol withdrawal. Patient will be placed on a Librium taper for eight days. [facility] All the above was discussed with the patient. Patient is stable for discharge. Patient is hemodynamically stable. There was no evidence of an acute medical or surgical emergency at this time. Departure Time of Disposition: 05:33 Disposition: 01 HOME / SELF CARE / HOMELESS Impression: Primary Impression: Alcohol withdrawal syndrome Qualified Codes: F10.939 - Alcohol use, unspecified with withdrawal, unspecified Additional Impression: Alcoholic gastritis Qualified Codes: K29.20 - Alcoholic gastritis without bleeding Condition: Improved Discharge Instructions: Alcohol Withdrawal Syndrome, [id number], Gastritis, Adult, [id number] Additional Instructions: GO STRAIGHT TO [facility]. AVOID ANY ALCOHOL USE Prescriptions Chlordiazepoxide Hcl (Librium) 25 Mg Capsule 25 MG PO DIRECTED, #20 CAP 0 Refills TAKE 1 TAB PO FOUR TIMES A DAY FOR 2 DAYS THEN TAKE 1 TAB PO THREE TIMES A DAY FOR 2 DAYS THEN TAKE 1 TAB PO TWICE A DAY FOR 2 DAYS THEN TAKE 1 TAB PO DAILY FOR 2 DAYS Prov: AYE BLAND MD 06/26/25 Education Educated: Patient Educated regarding: diagnosis, treatment, need for follow up Signature Scribe Signature: No scribe Attestation: No scribe AYE BLAND MD Jun 26, 2025 02:49
[2025-06-26 04:20] LABS: LEUKOCYTE ESTERASE ,URINE NEGATIVE (Neg); NITRITES, URINE NEGATIVE (Neg); OCCULT BLOOD,URINE NEGATIVE (Neg)
[2025-06-26 04:25] LABS: UA COLLECTION TYPE NON-SPECIFIED
[2025-06-26] MEDS: normal saline 1000ML IV soln IVB ONE (04:30)
[2025-06-26] MEDS: mag hydrox/Alum hydrox/simeth 30ml oral suspension PO ONE (04:32)
[2025-06-26] MEDS: LIDOcaine 2% Viscous 15ml cup MM ONE (04:33)
[2025-06-26 04:35] LABS: URINE AMPHETAMINE SCREEN NEGATIVE (Neg); URINE BARBITUATE SCREEN NEGATIVE (Neg); URINE BENZODIAZEPINES SCREEN NEGATIVE (Neg); URINE CANNABINOID SCREEN POSITIVE (Neg); URINE COCAINE SCREEN NEGATIVE (Neg); URINE METHADONE SCREEN NEGATIVE (Neg); URINE OPIATE SCREEN NEGATIVE (Neg); URINE PHENCYCLIDINE SCREEN NEGATIVE (Neg)
[2025-06-26] MEDS: ondansetron/PF 4mg/2ml inj IV ONE (04:37)
[2025-06-26] MEDS: morphine 10mg/ml inj. IV ONE (04:39)
[2025-06-26] MEDS ORDERED: CHLO25CA10 PO (05:37)
[2025-06-26 06:28] VITALS: BP 133/90; PULSE 82; RESP 15; TEMP 98.3; O2SAT 95
--- NOTE | 2025-06-26 06:55 | ELECTROCARDIOGRAPH REPORT ---
[facility] Test Date: 2025-06-25 Test Time: 22:11:26 Pat Name: JR TERRY Department: EMERGENCY ROOM Room: Gender: M [employer] Internship: : 1990 Requested By: AYE BLAND Order Number: [id number] Reading MD: Measurements Intervals [place] Rate: 108 P: 55 TX: 121 QRS: 63 QRSD: 87 T: 23 QT: 350 QTc: 469 Interpretive Statements Sinus tachycardia Please click the below link to view image of tracing.
== END 2025-06-26 06:33 | disposition home or self-care (01) ==
LOC: ER 21:46
DX: F10.239 Alcohol dependence with withdrawal, unspecified (principal); K29.20 Alcoholic gastritis without bleeding; I10 Essential (primary) hypertension; F41.9 Anxiety disorder, unspecified; F12.90 Cannabis use, unspecified, uncomplicated; Z87.442 Personal history of urinary calculi; Z79.899 Other long term (current) drug therapy; Y90.0 Blood alcohol level of less than 20 mg/100 ml
CPT/HCPCS: 36415; 71045; 80053; 80305; 80320; 81003; 82948; 85025; 93005; 96361; 96374; 96375; 99285; J2274; J2405; J2560; J7030

== ENCOUNTER 2025-07-09 05:47 | Emergency (ER) | payer MEDICAID ==
[~2025-07-09] VITALS: Ht 162.6 cm; Wt 118.0 kg
[~2025-07-09 05:47] MED LIST changes: +CHLO25CA10 PO
--- NOTE | 2025-07-09 06:58 | Physician Documentation ---
History of Present Illness General Chief Complaint: Vomiting Stated Complaint: VOMITING Time Seen by MD: 06:58 Primary Medical Doctor: HENRIETTA FULTON Mode of Arrival: Dropped Off History of Present Illness Initial Comments Patient is a 34-year-old male with a history of chronic alcohol use as well as cyclic vomiting. Patient is complaining of his typical nausea and vomiting episodes. Patient states last time he was here he had significant relief with a cocktail of medications indication to include some Ativan. The patient denies any fevers chills or diarrhea patient states his symptoms are similar to the symptoms had in the past his symptoms are moderate and persistent. Medication Reconciliation Allergies: Coded Allergies: No Known Allergies (Unverified , 06/25/25) Scheduled Chlordiazepoxide Hcl (Librium), 25 MG PO DIRECTED Gabapentin (Gabapentin), 2 CAP PO TID Gabapentin (Gabapentin), 1 CAP PO Q8H Lisinopril (Lisinopril), 10 MG PO DAILY Lorazepam (Ativan), 1 TAB PO Q8H Metoclopramide HCl (Reglan), 1 TAB PO Q6H Metoclopramide HCl (Reglan), 1 TAB PO Q8H Naltrexone Hcl (Naltrexone Hcl), 1 TAB PO DAILY ONDANSETRON ODT 4mg tablet (Ondansetron Odt), 4 MG PO Q6H ONDANSETRON ODT 4mg tablet (Ondansetron Odt), 4 MG PO BID Olanzapine (Zyprexa), 1 TAB PO HS Olanzapine (Zyprexa), 1 TAB PO BID Ondansetron 8mg ODT (Ondansetron Odt), 1 TAB PO Q6H Pantoprazole Sodium (PROTONIX tablet), 1 TAB PO DAILY Pantoprazole Sodium (PROTONIX tablet), 1 TAB PO DAILY Potassium Chloride* (K-Dur*), 1 TAB PO DAILY Scheduled PRN Acetaminophen (Tylenol Extra Strength), 2 TAB PO Q6H PRN PRN for pain or fever, (Reported) ONDANSETRON ODT 4mg tablet (Ondansetron Odt), 1 TAB PO Q6H PRN PRN for nausea/vomiting Tizanidine Hcl (Tizanidine Hcl), 1 CAP PO Q6H PRN for pain, (Reported) Past Medical History Past Medical History: Hypertension, Gastritis, Hematuria, Kidney Stones, Anxiety Past Surgical History: orthopedic surgeries Alcohol Use: Heavy Drug Use: marijuana Occupation: employed Review of Systems All Other Systems at this time: Reviewed and Negative Physical Exam Physical Exam Vital Signs: Temperature: 98.0, Heart Rate: 130, Respiratory Rate: 24, Pulse Oximetry: 96, Weight: 118.000 Oxygen Flow Rate: 0 Physical Exam VITALS: Reviewed and as above. GENERAL: Alert, no apparent distress. HEENT: Normocephalic, atraumatic, PERRL, EOMI, dry mucosa, no erythema RESPIRATORY: Lungs clear, normal breath sounds, no respiratory distress. CHEST: No accessory muscle use, no retractions CV: Regular rate, rhythm, no edema, no murmur, No: JVD GI: Soft, non-tender, bowels sounds present, no rebound, guarding, or rigidity BACK: No CVA tenderness, or swelling MUSCULOSKELETAL: No deformities, no edema SKIN: Warm and dry, no rash NEURO: Oriented x4, No motor or sensory deficit PSYCH: Normal mood and affect, no agitation Progress Results/Orders Results/Orders Completed Orders - OHLASIF,SOHAM Harper MD Normal Saline 1000ml (0.9% Sodium Chlori (07/09/25 07:05) Normal Saline 1000ml (0.9% Sodium Chlori (07/09/25 07:05) Lorazepam Inj (Ativan Inj) (07/09/25 07:05) Metoclopramide Inj (Reglan Inj) (07/09/25 07:05) Diphenhydramine Inj (Benadryl Inj.) (07/09/25 07:05) Cbc/Diff (07/09/25 07:05) BMP (07/09/25 07:05) Vital Signs 07/09/25 07/09/25 07/09/25 07/09/25 05:59 06:26 06:30 07:26 Temp 98.0 98.4 Pulse 130 89 Resp 24 24 24 16 B/P (MAP) 174/101 (125) Pulse Ox 96 98 O2 Flow Rate 0 0 07/09/25 07/09/25 07:34 08:23 Temp 98.4 Pulse 89 94 Resp 16 16 B/P (MAP) 163/103 (123) 181/91 Pulse Ox 99 98 O2 Flow Rate 0 Laboratory Tests Test 07/09/25 07:15 White Blood Count 8.3 Red Blood Count 5.37 Hemoglobin 17.2 Hematocrit 50.8 Mean Corpuscular Volume 94.6 Mean Corpuscular Hemoglobin 32.1 H Mean Corpuscular Hemoglobin Concent 33.9 Red Cell Distribution Width 14.2 Platelet Count 344 Mean Platelet Volume 8.0 Neutrophils (%) (Auto) 76.8 H Lymphocytes (%) (Auto) 13.3 L Monocytes (%) (Auto) 8.8 Eosinophils (%) (Auto) 0.3 Basophils (%) (Auto) 0.8 Neutrophils # (Auto) 6.4 Lymphocytes # (Auto) 1.1 Monocytes # (Auto) 0.7 Eosinophils # (Auto) 0.0 Basophils # (Auto) 0.1 CBC Comment Sodium Level 141 Potassium Level 4.4 Chloride Level 96 L Carbon Dioxide Level 29.2 Anion Gap 16 Blood Urea Nitrogen 11 Creatinine 0.99 Estimated GFR/1.73 m2 86 BUN/Creatinine Ratio 11.1 Glucose Level 120 H Calcium Level 9.4 Albumin 4.1 Chemistry Comments Medical Decision Making Findings Patient with episode of cyclic vomiting he is nontoxic otherwise well-appearing. His labs were unremarkable the patient received a cocktail of medication here in the emergency room with improvement of his symptoms. The patient will be discharged with instructions to follow up as an outpatient. Patient's prior hospitalizations have been reviewed patient's pulse oximetry was interpreted as adequate and normal Departure Disposition: 01 HOME / SELF CARE / HOMELESS Impression: Primary Impression: Cyclic vomiting syndrome Discharge Instructions: Nausea and Vomiting, Adult Referrals: NO PRIMARY CARE PROVIDER (PCP) Signature Scribe Signature: no scribe Attestation: The note accurately reflects work and decisions made by me.Soham Hunt MD 07/09/25 15:27 SOHAM HUNT MD Jul 09, 2025 06:58
[2025-07-09] MEDS: normal saline 1000ML IV soln IVB ONE ×2 (07:21→07:59)
[2025-07-09] MEDS: metoclopramide 5 mg/ml inj IV ONE (07:25)
[2025-07-09 07:31] LABS: MEAN PLATELET VOLUME 8.0 FL (7.4-10.4); RED CELL DISTRIBUTION WIDTH 14.2 % (11.5-14.5)
[2025-07-09 07:39] LABS: CREATININE 0.99 MG/DL (0.60-1.10); eCRCL 86 ML/MIN; eGFR 86 ML/MIN
[2025-07-09 07:49] LABS: TOTAL CARBON DIOXIDE 29.2 MMOL/L (24-32)
[2025-07-09 08:23] VITALS: BP 181/91; PULSE 94; RESP 16; TEMP 98.4; O2SAT 98
== END 2025-07-09 08:30 | disposition home or self-care (01) ==
LOC: ER 05:47
DX: R11.2 Nausea with vomiting, unspecified (principal); F41.9 Anxiety disorder, unspecified; I10 Essential (primary) hypertension
CPT/HCPCS: 36415; 80048; 85025; 96374; 96375; 99284; J1200; J2060; J2765; J7030

== ENCOUNTER 2025-07-15 17:46 | Emergency (ER) | payer MEDICAID ==
[~2025-07-15] VITALS: Ht 162.6 cm; Wt 118.2 kg
[2025-07-15 19:38] LABS: CREATININE 0.82 MG/DL (0.60-1.10); TOTAL CARBON DIOXIDE 25.6 MMOL/L (24-32); eCRCL 104 ML/MIN; eGFR > 90 ML/MIN
[2025-07-15 19:53] LABS: MEAN PLATELET VOLUME 8.7 FL (7.4-10.4); RED CELL DISTRIBUTION WIDTH 14.5 % (11.5-14.5)
[2025-07-15 19:56] LABS: LEUKOCYTE ESTERASE ,URINE NEGATIVE (Neg); NITRITES, URINE NEGATIVE (Neg); OCCULT BLOOD,URINE NEGATIVE (Neg)
[2025-07-15 20:01] LABS: URINE AMPHETAMINE SCREEN NEGATIVE (Neg); URINE BARBITUATE SCREEN NEGATIVE (Neg); URINE BENZODIAZEPINES SCREEN POSITIVE (Neg); URINE CANNABINOID SCREEN POSITIVE (Neg); URINE COCAINE SCREEN NEGATIVE (Neg); URINE METHADONE SCREEN NEGATIVE (Neg); URINE OPIATE SCREEN NEGATIVE (Neg); URINE PHENCYCLIDINE SCREEN NEGATIVE (Neg)
[2025-07-15 20:05] LABS: UA COLLECTION TYPE NON-SPECIFIED
[2025-07-15 20:08] LABS: SQUAMOUS EPITHELIAL CELL,UR NONE SEEN /LPF (FEW)
--- NOTE | 2025-07-15 22:17 | Physician Documentation ---
History of Present Illness ~ Chief Complaint: Vomiting Stated Complaint: VOMITING Time Seen by MD: 22:16 Primary Medical Doctor: HENRIETTA FULTON Mode of Arrival: POV, Ambulatory HPI Patient presents to the emergency room with 4 hour history of vomiting. Patient has a long history of multiple episodes with similar presentation than has been diagnosed with cyclic vomiting. He also continues to drank significant alcohol. He has had nothing for his nausea prior to visit. Medication Reconciliation Allergies: Coded Allergies: No Known Allergies (Unverified , 07/15/25) Scheduled Chlordiazepoxide Hcl (Librium), 25 MG PO DIRECTED Gabapentin (Gabapentin), 2 CAP PO TID Gabapentin (Gabapentin), 1 CAP PO Q8H Lisinopril (Lisinopril), 10 MG PO DAILY Lorazepam (Ativan), 1 TAB PO Q8H Metoclopramide HCl (Reglan), 1 TAB PO Q6H Metoclopramide HCl (Reglan), 1 TAB PO Q8H Naltrexone Hcl (Naltrexone Hcl), 1 TAB PO DAILY ONDANSETRON ODT 4mg tablet (Ondansetron Odt), 4 MG PO Q6H ONDANSETRON ODT 4mg tablet (Ondansetron Odt), 4 MG PO BID Olanzapine (Zyprexa), 1 TAB PO HS Olanzapine (Zyprexa), 1 TAB PO BID Ondansetron 8mg ODT (Ondansetron Odt), 1 TAB PO Q6H Pantoprazole Sodium (PROTONIX tablet), 1 TAB PO DAILY Pantoprazole Sodium (PROTONIX tablet), 1 TAB PO DAILY Potassium Chloride* (K-Dur*), 1 TAB PO DAILY Scheduled PRN Acetaminophen (Tylenol Extra Strength), 2 TAB PO Q6H PRN PRN for pain or fever, (Reported) ONDANSETRON ODT 4mg tablet (Ondansetron Odt), 1 TAB PO Q6H PRN PRN for nausea/vomiting Tizanidine Hcl (Tizanidine Hcl), 1 CAP PO Q6H PRN for pain, (Reported) Past Medical History Past Medical History: Hypertension, Gastritis, Hematuria, Kidney Stones, Anxiety Past Surgical History: orthopedic surgeries Patient History: FH: diabetes mellitus FATHER FH: thyroid condition MOTHER Alcohol Use: Heavy Drug Use: marijuana Occupation: employed Review of Systems ROS All review of systems negative except as per HPI Physical Exam Vital Signs: Temperature: 97.6, Source: Temporal, Heart Rate: 109, Respiratory Rate: 20, BP: 153/119, Pulse Oximetry: 94, Weight: 118.180 Oxygen Flow Rate: 0 General Appearance General: Patient is awake, alert, oriented x4 in mild distress Head: Normocephalic and atraumatic. Eyes: Conjunctival normal. EOMI. PERRL. ENT: Mucous membranes moist. Neck: Supple, trachea is midline. Chest: Clear to auscultation bilaterally without rales, rhonchi, or wheezes. There is no accessory muscle use or retractions. Cardiac: RRR without murmurs, gallops, or rubs. Abd: Soft, nondistended, mild diffuse tenderness to palpation without peritonitis Progress Results/Orders Results/Orders Completed Orders - NAVEEN RODRIGUEZ MD Amylase (07/15/25 18:33) Lipase (07/15/25 18:33) CMP (07/15/25 18:33) Drug Screen, Urine (07/15/25 18:33) Ua W/Microscopic, Cult If Ind (07/15/25 18:37) Lorazepam Inj (Ativan Inj) (07/15/25 22:20) Haloperidol Lact. (Haldol) (07/15/25 22:20) Ondansetron Inj. (Zofran 4mg/2ml Vial) (07/15/25 22:20) Metoclopramide Inj (Reglan Inj) (07/15/25 22:20) Normal Saline 1000ml (0.9% Sodium Chlori (07/15/25 22:20) Electrocardiogram (07/15/25 23:17) Medications Received in ER Medications (Trade) Dose Ordered Sig/Manju Route PRN Reason Start Time Stop Time Status Last Admin Dose Admin (Ativan inj) 0.5 mg ONCE ONCE IV 07/15/25 22:20 07/15/25 22:22 DC 07/15/25 23:14 0.5 MG (Haldol) 2 mg ONCE ONCE IVH 07/15/25 22:20 07/15/25 22:26 DC 07/15/25 23:23 2 MG (Zofran 4mg/2ml vial) 8 mg ONCE ONCE IV 07/15/25 22:20 07/15/25 22:22 DC 07/15/25 23:14 8 MG (Reglan inj) 10 mg ONCE ONCE IV 07/15/25 22:20 07/15/25 22:22 DC 07/15/25 23:17 10 MG Sodium Chloride 1,000 ml @ 1,000 mls/hr ONCE ONCE IV 07/15/25 22:20 07/15/25 23:19 DC 07/15/25 23:14 1,000 MLS/HR Vital Signs 07/15/25 07/15/25 07/15/25 07/15/25 18:06 21:33 21:36 23:14 Temp 97.6 Pulse 91 109 Resp 18 16 20 20 B/P (MAP) 169/127 153/119 (130) Pulse Ox 98 94 O2 Flow Rate 0 Laboratory Tests Test 07/15/25 18:37 07/15/25 18:48 07/15/25 19:38 Urine Specimen Description Non-specified Urine Color Yellow Urine Clarity Clear Urine pH 6.0 Urine Specific [place] 1.020 Urine Protein Trace Urine Glucose (UA) Negative Urine Ketones Trace H Urine Occult Blood Negative Urine Nitrite Negative Urine Bilirubin Negative Urine Urobilinogen 0.2 Urine Leukocyte Esterase Negative Urine RBC None seen Urine WBC None seen Urine Squamous Epithelial Cells None seen Urine Bacteria 1+ Urine Culture Indicated Not ind Volume Urine Centrifuged 10 ml Urine Comment Urine Opiates Screen Negative Urine Methadone Screen Negative Urine Fentanyl Screen Negative Urine Barbiturates Screen Negative Urine Phencyclidine Screen Negative Urine Amphetamines Screen Negative Urine Benzodiazepines Screen Positive Urine Cocaine Screen Negative Urine Cannabinoids Screen Positive Drug Screen Comment CBC Comment Sodium Level 142 Potassium Level 4.0 Chloride Level 106 Carbon Dioxide Level 25.6 Anion Gap 10 Blood Urea Nitrogen 9 Creatinine 0.82 Estimated GFR/1.73 m2 > 90 BUN/Creatinine Ratio 11.0 Glucose Level 97 Calcium Level 9.0 Total Bilirubin 0.4 Aspartate Amino Transf (AST/SGOT) 179 H Alanine Aminotransferase (ALT/SGPT) 165 H Alkaline Phosphatase 102 Total Protein 7.8 Albumin 3.5 Globulin 4.3 Albumin/Globulin Ratio 0.8 L Amylase Level 42 Lipase 39 Chemistry Comments White Blood Count 8.6 Red Blood Count 5.17 Hemoglobin 16.8 Hematocrit 49.2 Mean Corpuscular Volume 95.2 Mean Corpuscular Hemoglobin 32.5 H Mean Corpuscular Hemoglobin Concent 34.2 Red Cell Distribution Width 14.5 Platelet Count 199 Mean Platelet Volume 8.7 Neutrophils (%) (Auto) 69.6 Lymphocytes (%) (Auto) 18.1 L Monocytes (%) (Auto) 10.2 Eosinophils (%) (Auto) 1.4 Basophils (%) (Auto) 0.7 Neutrophils # (Auto) 6.0 Lymphocytes # (Auto) 1.6 Monocytes # (Auto) 0.9 Eosinophils # (Auto) 0.1 Basophils # (Auto) 0.1 EKG/XRAY/CT/US/VASC/MRI EKG : Additional Comment EKG interpreted by myself shows time of 2319, rate 108, sinus tachycardia, normal axis, no ST changes Medical Decision Making Findings Patient presents to the emergency room with vomiting. Differentials include but are not limited to cyclic vomiting syndrome, dehydration, electrolyte disturbances, small-bowel obstruction, viral syndrome therefore emergent labs ordered. Patient is responding to therapy. He had not feel he requires a CT scan. Patient states he feels well enough to go. Departure Disposition: 01 HOME / SELF CARE / HOMELESS Impression: Primary Impression: Cyclic vomiting syndrome Condition: Improved Discharge Instructions: Nausea and Vomiting, Adult Referrals: NO PRIMARY CARE PROVIDER (PCP) Prescriptions Ondansetron 8mg ODT (Ondansetron Odt) 8 Mg Tab.rapdis 1 TAB PO Q6H for nausea/vomiting for 3 Days, #12 TAB 0 Refills Prov: NAVEEN RODRIGUEZ MD 07/16/25 Signature Scribe Signature: No scribe Attestation: The note accurately reflects work and decisions made by me.Naveen Rodriguez MD 07/16/25 00:21 NAVEEN RODRIGUEZ MD Jul 15, 2025 22:17
[2025-07-15] MEDS: normal saline 1000ml 1,000 ML IV ONE (23:14)
[2025-07-15] MEDS: ondansetron/PF 4mg/2ml inj IV ONE (23:14)
[2025-07-15] MEDS: metoclopramide 5 mg/ml inj IV ONE (23:17)
--- NOTE | 2025-07-15 23:21 | ELECTROCARDIOGRAPH REPORT ---
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
[2025-07-15] MEDS: haloperidol lactate 5mg/ml inj IVH ONE (23:23)
[2025-07-16 00:34] VITALS: BP 148/72; PULSE 88; RESP 16; TEMP 97.6; O2SAT 97
== END 2025-07-16 00:37 | disposition home or self-care (01) ==
LOC: ER 17:47
DX: R11.15 Cyclical vomiting syndrome unrelated to migraine (principal); I10 Essential (primary) hypertension; F41.9 Anxiety disorder, unspecified; F12.90 Cannabis use, unspecified, uncomplicated; Z87.442 Personal history of urinary calculi; Z87.19 Personal history of other diseases of the digestive system; Z79.899 Other long term (current) drug therapy; Z98.890 Other specified postprocedural states
CPT/HCPCS: 36415; 80053; 80305; 81001; 82150; 83690; 85025; 93005; 96361; 96374; 96375; 99284; J1630; J2060; J2405; J2765; J7030

== ENCOUNTER 2025-07-23 20:56 | Emergency (ER) | payer MEDICAID ==
[~2025-07-23] VITALS: Ht 162.6 cm; Wt 118.0 kg
[2025-07-23 22:39] LABS: MEAN PLATELET VOLUME 8.5 FL (7.4-10.4); RED CELL DISTRIBUTION WIDTH 15.9 % (11.5-14.5)
[2025-07-23 22:40] LABS: APTT 25 SECONDS (22-32); INR 1.1 INR
[2025-07-23 22:45] LABS: CREATININE 1.04 MG/DL (0.60-1.10); ETHANOL 61 MG/DL (<10); TOTAL CARBON DIOXIDE 21.0 MMOL/L (24-32); eCRCL 82 ML/MIN; eGFR 81 ML/MIN
[2025-07-23] MEDS: pantoprazole 40MG/NS 100ML BAG 100 ML IV ONE (22:51)
[2025-07-23] MEDS: pantoprazole 40mg IV 80 MG in normal saline 100ml IV soln 100 ML IV ONE (22:52)
--- NOTE | 2025-07-23 22:58 | RADIOLOGY REPORT ---
EXAM: DI CHEST,SINGLE VIEW TECHNIQUE: Single frontal chest radiograph CLINICAL HISTORY: vomiting up blood COMPARISON: DI CHEST,SINGLE VIEW on DOS: 06/25/25, DI CHEST,SINGLE VIEW on DOS: 03/22/25, DI CHEST,SINGLE VIEW on DOS: 12/17/24, DI CHEST,SINGLE VIEW on DOS: 04/17/24, CHEST,SINGLE VIEW on DOS: 09/11/20 FINDINGS/IMPRESSION: The lungs are clear. The cardiomediastinal silhouette is unremarkable. No pleural effusion or pneumothorax. No acute osseous abnormality.
--- NOTE | 2025-07-23 23:22 | Physician Documentation ---
History of Present Illness Chief Complaint: Abdominal Pain w/vomiting Stated Complaint: VOMMITING Time Seen by MD: 22:02 OK to notify your PCP?: Yes Primary Medical Doctor: HENRIETTA FULTON Source: patient, RN/, RN notes reviewed, old records Mode of Arrival: Ambulatory Exam Limitations: no limitations HPI 1 This patient is a 34 y/o male who presents to ED with chief complaint of nausea/vomiting and abdominal pain. Patient reports that these symptoms came on gradually and have been worsening for the past 4-5 hours. He also reports some bloody streaking in his vomit. Patient denies any black or tarry stools. Patient has been seen here for cannabinoid hyperemesis in the past, and admits he continues to smoke marijuana. Patient admits he last smoked two days ago, stating he does it for his back pain. Patient also endorses daily alcohol abuse, stating he drinks approximately 0.5 of a gallon of liquor every 1-2 days. The last time he was sober for a period of 3 days or more was a week ago, and he states it did cause him to have tremors. He denies any history of seizures. Patient denies any other associated symptoms at this time. Patient denies any other alleviating or exacerbating factors. Medication Reconciliation Allergies: Coded Allergies: No Known Allergies (Unverified , 07/23/25) Scheduled Capsaicin 60GM Cream* (Zostrix Cream*), 1 APPLIC TOP Q12H Chlordiazepoxide Hcl (Librium), 25 MG PO DIRECTED Gabapentin (Gabapentin), 2 CAP PO TID Gabapentin (Gabapentin), 1 CAP PO Q8H Lisinopril (Lisinopril), 10 MG PO DAILY Lorazepam (Ativan), 1 TAB PO Q8H Metoclopramide HCl (Reglan), 1 TAB PO Q6H Metoclopramide HCl (Reglan), 1 TAB PO Q8H Naltrexone Hcl (Naltrexone Hcl), 1 TAB PO DAILY ONDANSETRON ODT 4mg tablet (Ondansetron Odt), 4 MG PO Q6H ONDANSETRON ODT 4mg tablet (Ondansetron Odt), 4 MG PO BID Olanzapine (Zyprexa), 1 TAB PO HS Olanzapine (Zyprexa), 1 TAB PO BID Ondansetron 8mg ODT (Ondansetron Odt), 1 TAB PO Q6H Ondansetron 8mg ODT (Ondansetron Odt), 1 TAB PO Q6H Pantoprazole Sodium (PROTONIX tablet), 1 TAB PO DAILY Pantoprazole Sodium (PROTONIX tablet), 1 TAB PO DAILY Potassium Chloride* (K-Dur*), 1 TAB PO DAILY Promethazine Hcl (Promethazine Hcl), 1-2 SUPP RC Q6H Scheduled PRN Acetaminophen (Tylenol Extra Strength), 2 TAB PO Q6H PRN PRN for pain or fever, (Reported) ONDANSETRON ODT 4mg tablet (Ondansetron Odt), 1 TAB PO Q6H PRN PRN for nausea/vomiting ONDANSETRON ODT 4mg tablet (Ondansetron Odt), 1 TAB PO Q6H PRN PRN for nausea/vomiting Tizanidine Hcl (Tizanidine Hcl), 1 CAP PO Q6H PRN for pain, (Reported) Past Medical History Past Medical History: Hypertension, Gastritis, Hematuria, Kidney Stones, Anxiety Past Surgical History: orthopedic surgeries Patient History: FH: diabetes mellitus FATHER FH: thyroid condition MOTHER Smoking Status: Unknown if ever smoked Alcohol Use: Heavy Drug Use: marijuana Occupation: employed Review of Systems All Other Systems at this time: Reviewed and Negative Physical Exam Vital Signs: RN Vital Signs have been reviewed: Yes, Temperature: 98.1, Source: Temporal, Heart Rate: 118, Respiratory Rate: 24, BP: 151/123, Pulse Oximetry: 98, Weight: 118.000 Oxygen Flow Rate: 0 Physical Exam General: Uncomfortable appearing. Moderate distress. Violently retching and hunched forward during exam. The patient is otherwise well developed, well nourished, nontoxic appearing. Skin: [place], warm and dry with no rashes. HEENT: Head was normocephalic and atraumatic. Eyes - pupils equal, round, reactive to light and accommodation. Extraocular movements were intact. Conjunctivae were nonicteric. The mouth and oropharynx were clear with moist m ucous membranes. There were no pharyngeal exudates or erythema. Neck: Supple and nontender. There was no jugular venous distention, lymphadenopathy, thyromegaly or masses. Chest: Clear to auscultation bilaterally without wheezes, rales or rhonchi. No accessory muscle use. No dullness to percussion. Heart: Rate regular and rhythmic. S1, S2. No murmurs. Palpation of the chest wall was normal. No rubs or thrills. Abdomen: Hypoactive bowel sounds. Epigastric tenderness to palpation. Abdomen otherwise soft and nondistended. No guarding or rebound. No hepatosplenomegaly or palpable masses. Extremities: No cyanosis, clubbing or edema. The patient moves all extremities. Pulses were equal and symmetric. Neurologic: Motor and sensation grossly intact. A & O x4. Psychologic: The patient was oriented to person, place and time. Progress Results/Orders Reviewed/noted all lab results: Yes Results/Orders Orders - GROVER AGUILAR MD Urinalysis, Cult If Indicated (07/23/25 22:02) Chest,Single View (07/23/25 22:02) Drug Screen, Urine (07/23/25 22:02) Monitor (07/23/25 22:02) Saline Lock (07/23/25 22:02) Completed Orders - GROVER AGUILAR MD Cbc/Diff (07/23/25 22:02) Lipase (07/23/25 22:02) Ethanol (07/23/25 22:02) MG (07/23/25 22:02) Pt Inr (07/23/25 22:02) PTT (07/23/25 22:02) Type And Screen (07/23/25 22:02) Chest,Single View (07/23/25 22:02) Pantoprazole 40mg Iv (Protonix 40mg Iv) (07/23/25 22:05) CMP (07/23/25 22:02) Pantoprazole 40mg/Ns 100ml Bag (Protonix (07/23/25 22:47) Medications Received in ER Medications (Trade) Dose Ordered Sig/Manju Route PRN Reason Start Time Stop Time Status Last Admin Dose Admin Pantoprazole Sodium 80 mg/ Sodium Chloride 100 ml @ 200 mls/hr ONCE ONCE IV 07/23/25 22:05 07/23/25 22:34 DC 07/23/25 22:52 200 MLS/HR Vital Signs 07/23/25 07/23/25 07/23/25 07/23/25 21:01 21:32 22:00 22:15 Temp 98.1 Pulse 122 78 110 Resp 20 18 24 22 B/P (MAP) 126/91 162/120 (134) 155/122 (133) Pulse Ox 97 97 98 O2 Flow Rate 0 0 07/23/25 07/23/25 22:30 22:46 Pulse 112 118 Resp 24 24 B/P (MAP) 157/110 (126) 151/123 (132) Pulse Ox 97 98 O2 Flow Rate 0 0 Laboratory Tests Test 07/23/25 22:18 White Blood Count 11.9 H Red Blood Count 5.37 Hemoglobin 17.6 Hematocrit 51.3 Mean Corpuscular Volume 95.6 Mean Corpuscular Hemoglobin 32.8 H Mean Corpuscular Hemoglobin Concent 34.2 Red Cell Distribution Width 15.9 H Platelet Count 252 Mean Platelet Volume 8.5 Neutrophils (%) (Auto) 80.5 H Lymphocytes (%) (Auto) 10.2 L Monocytes (%) (Auto) 7.8 Eosinophils (%) (Auto) 0.4 Basophils (%) (Auto) 1.1 H Neutrophils # (Auto) 9.6 H Lymphocytes # (Auto) 1.2 Monocytes # (Auto) 0.9 Eosinophils # (Auto) 0.0 Basophils # (Auto) 0.1 CBC Comment Prothrombin Time 10.9 INR International Normalized Ratio 1.1 Activated Partial Thromboplast Time 25 Coagulation Comments Sodium Level 139 Potassium Level 4.0 Chloride Level 99 Carbon Dioxide Level 21.0 L Anion Gap 19 H Blood Urea Nitrogen 9 Creatinine 1.04 Estimated GFR/1.73 m2 81 BUN/Creatinine Ratio 8.7 L Glucose Level 161 H Calcium Level 9.0 Magnesium Level 1.9 Total Bilirubin 0.7 Aspartate Amino Transf (AST/SGOT) 290 H Alanine Aminotransferase (ALT/SGPT) 385 H Alkaline Phosphatase 130 H Total Protein 8.6 H Albumin 3.8 Globulin 4.8 H Albumin/Globulin Ratio 0.8 L Lipase 35 Chemistry Comments Ethyl Alcohol Level 61 H Re-Evaluation Re-Evaluation : Re-Evaluation: Improved Progress Patient was seen and examined. Patient is given reassurance. Patient came in with classic cyclic vomiting symptoms he also has a history of severe alcohol abuse and possible withdrawal symptoms. Laboratory work was obtained. Patient received IV fluids 2 L of fluids. Patient received Haldol Valium 2 L of fluid Protonix. After several hours patient was resting he was doing much better he was discharged home still had some discomfort to the abdomen no signs of withdrawals. Patient's laboratory work showed an alcohol level of 61 he has chemistry showed slight acidosis with a CO2 of 21 BUN nine creatinine 1.04 patient's glucose is slightly elevated at 161 magnesium 1.9 there was some transaminitis total bilirubin is within normal limits but AST at 290 ALT 385 alk-phos 130 lipase normal at 35. Patient has no history of pancreatitis. States he has some specks of blood. Esophagitis, Valencia-Roque tears was considered unlikely to be into the mediastinum patient is not look toxic and comfortable. Upper GI bleed was also considered but these are more specks of blood mostly from violent vomiting classical with cyclic vomiting. Patient was given a long speech has to the damage and addiction of marijuana abuse that is occurring. Patient was stabilized and discharged home. EKG/XRAY/CT/US/VASC/MRI Chest X-Ray : Interpreted By: both Additional Comments [place] [id number] DIAGNOSTIC RADIOLOGY Patient: JR TERRY Medical Record: [id number] [facility] : 1990, Age: 34 Sex: Male Location: ER Patient Status: REG ER Service Date/Time: 07/23/252201 Ordering Physician: GROVER AGUILAR MD Exam: CHEST,SINGLE VIEW EXAM: DI CHEST,SINGLE VIEW TECHNIQUE: Single frontal chest radiograph CLINICAL HISTORY: vomiting up blood COMPARISON: DI CHEST,SINGLE VIEW on DOS: 06/25/25, DI CHEST,SINGLE VIEW on DOS: 03/22/25, DI CHEST,SINGLE VIEW on DOS: 12/17/24, DI CHEST,SINGLE VIEW on DOS: 04/17/24, CHEST,SINGLE VIEW on DOS: 09/11/20 FINDINGS/IMPRESSION: The lungs are clear. The cardiomediastinal silhouette is unremarkable. No pleural effusion or pneumothorax. No acute osseous abnormality. Electronically Signed by:CHARLA GRIGSBY MD Date & Time: 07/23/252254 Dictated by: CHARLA GRIGSBY MD Dictation date and time: 07/23/252254 Primary Care Provider: NO PRIMARY CARE PROVIDER cc: GROVER AGUILAR MD ~ EDMD DR. AGUILAR REVIEWED IMAGES AND AGREES WITH ABOVE FINDINGS Medical Decision Making Additional info obtained from: old records Differential Dx:Considerations: Include: Bowel obstruction, Esophagitis, Gastritis/PUD, Gastroenteritis, GI hemorrhage, Hepatitis, Inflammatory BD, Ischemic bowel, Pancreatitis, Other Departure Time of Disposition: 03:07 Disposition: HOME / SELF CARE / HOMELESS Impression: Primary Impression: Cyclic vomiting syndrome Additional Impressions: Transaminitis Esophageal tear Qualified Codes: S11.21XA - Laceration without foreign body of pharynx and cervical esophagus, initial encounter Condition: Stable Discharge Instructions: Cyclic Vomiting Syndrome, Adult Additional Instructions: Please stop smoking marijuana, as it is detrimental to your health. I also recommend seeking out a detox center for help with quitting drinking alcohol. Referrals: NO PRIMARY CARE PROVIDER (PCP) Education Educated: Patient Educated regarding: diagnosis, need for follow up, other Signature Scribe Signature: Scribed for Grover Aguialr MD by Liliam Schuler . 07/23/25 23:30 Attestation: The note accurately reflects work and decisions made by me.Grover Aguilar MD 07/23/25 23:22 GROVER AGUILAR MD Jul 23, 2025 23:22
[2025-07-24] MEDS: diazepam inj 5 MG/ML inj. IV ONE (00:45)
[2025-07-24] MEDS: normal saline 1000ML IV soln IVB ONE (00:45)
[2025-07-24] MEDS: haloperidol lactate 5mg/ml inj IM ONE (00:45)
[2025-07-24 03:14] VITALS: BP 142/111; PULSE 120; RESP 18; TEMP 98.1; O2SAT 95
[2025-07-24] MEDS ORDERED: ONDA-243 PO (05:17)
[2025-07-24] MEDS ORDERED: CAPS60CR6 TOP (05:17)
[2025-07-24] MEDS ORDERED: PROM25SU51 RC (05:23)
== END 2025-07-24 03:43 | disposition home or self-care (01) ==
LOC: ER 20:57
DX: S11.21XA Laceration without foreign body of pharynx and cervical esophagus, initial encounter (principal); R11.15 Cyclical vomiting syndrome unrelated to migraine; F41.9 Anxiety disorder, unspecified; I10 Essential (primary) hypertension; R74.01 Elevation of levels of liver transaminase levels; F12.90 Cannabis use, unspecified, uncomplicated; F10.10 Alcohol abuse, uncomplicated; W44.9XXA Unspecified foreign body entering into or through a natural orifice, initial encounter; Y93.89 Activity, other specified; Y92.89 Other specified places as the place of occurrence of the external cause; Y99.8 Other external cause status; Y90.9 Presence of alcohol in blood, level not specified
CPT/HCPCS: 36415; 71045; 80053; 80320; 83690; 83735; 85025; 85610; 85730; 86885; 86900; 86901; 96361; 96365; 96372; 96375; 99285; J1630; J2470; J3360; J7030

== ENCOUNTER 2025-07-24 05:08 | Emergency (ER) | payer MEDICAID ==
[~2025-07-24] VITALS: Ht 162.6 cm; Wt 118.0 kg
[2025-07-24 05:11] VITALS: TEMP 97.8
--- NOTE | 2025-07-24 05:11 | Physician Documentation ---
History of Present Illness Stated Complaint: STOMACH PAINS Time Seen by MD: 05:10 OK to notify your PCP?: Yes Primary Medical Doctor: HENRIETTA FULTON Source: patient, RN/MD, RN notes reviewed, old records Mode of Arrival: POV Exam Limitations: no limitations HPI Triage This patient is a 34 y/o male who presents to ED for chief complaint of nausea/vomiting and abdominal pain. Patient returns tonight after recently being discharged hours earlier for similar symptoms. He has been seen here multiple times for cylcical vomiting related to his marijuana and alcohol abuse. He states that since being discharged he has developed hiccups which are making him more nauseated and causing him to excessively throw up again. Patient denies any other associated symptoms at this time. Patient denies any other alleviating or exacerbating factors. Medication Reconciliation Allergies: Coded Allergies: No Known Allergies (Unverified , 07/23/25) Scheduled Capsaicin 60GM Cream* (Zostrix Cream*), 1 APPLIC TOP Q12H Chlordiazepoxide Hcl (Librium), 25 MG PO DIRECTED Gabapentin (Gabapentin), 2 CAP PO TID Gabapentin (Gabapentin), 1 CAP PO Q8H Lisinopril (Lisinopril), 10 MG PO DAILY Lorazepam (Ativan), 1 TAB PO Q8H Metoclopramide HCl (Reglan), 1 TAB PO Q6H Metoclopramide HCl (Reglan), 1 TAB PO Q8H Naltrexone Hcl (Naltrexone Hcl), 1 TAB PO DAILY ONDANSETRON ODT 4mg tablet (Ondansetron Odt), 4 MG PO Q6H ONDANSETRON ODT 4mg tablet (Ondansetron Odt), 4 MG PO BID Olanzapine (Zyprexa), 1 TAB PO HS Olanzapine (Zyprexa), 1 TAB PO BID Ondansetron 8mg ODT (Ondansetron Odt), 1 TAB PO Q6H Ondansetron 8mg ODT (Ondansetron Odt), 1 TAB PO Q6H Pantoprazole Sodium (PROTONIX tablet), 1 TAB PO DAILY Pantoprazole Sodium (PROTONIX tablet), 1 TAB PO DAILY Potassium Chloride* (K-Dur*), 1 TAB PO DAILY Promethazine Hcl (Promethazine Hcl), 1-2 SUPP RC Q6H Scheduled PRN Acetaminophen (Tylenol Extra Strength), 2 TAB PO Q6H PRN PRN for pain or fever, (Reported) ONDANSETRON ODT 4mg tablet (Ondansetron Odt), 1 TAB PO Q6H PRN PRN for nausea/vomiting ONDANSETRON ODT 4mg tablet (Ondansetron Odt), 1 TAB PO Q6H PRN PRN for nausea/vomiting Tizanidine Hcl (Tizanidine Hcl), 1 CAP PO Q6H PRN for pain, (Reported) Past Medical History Past Medical History: Hypertension, Gastritis, Hematuria, Kidney Stones, Anxiety Past Surgical History: orthopedic surgeries Patient History: FH: diabetes mellitus FATHER FH: thyroid condition MOTHER Smoking Status: Unknown if ever smoked Alcohol Use: Heavy Drug Use: marijuana Occupation: employed Review of Systems All Other Systems at this time: Reviewed and Negative ROS As stated above in the HPI, otherwise all systems are reviewed and negative. Physical Exam Vital Signs: RN Vital Signs have been reviewed: Yes Physical Exam General: Uncomfortable appearing. Moderate distress. Violently retching and hunched forward during exam. The patient is otherwise well developed, well nourished, nontoxic appearing. Skin: Andres, warm and dry with no rashes. HEENT: Head was normocephalic and atraumatic. Eyes - pupils equal, round, reactive to light and accommodation. Extraocular movements were intact. Conjunctivae were nonicteric. The mouth and oropharynx were clear with moist mucous membranes. There were no pharyngeal exudates or erythema. Neck: Supple and nontender. There was no jugular venous distention, lymphadenopathy, thyromegaly or masses. Chest: Clear to auscultation bilaterally without wheezes, rales or rhonchi. No accessory muscle use. No dullness to percussion. Heart: Rate regular and rhythmic. S1, S2. No murmurs. Palpation of the chest wall was normal. No rubs or thrills. Abdomen: NO PERITONEAL SIGNS. Hypoactive bowel sounds. Epigastric tenderness to palpation. Abdomen otherwise soft and nondistended. No guarding or rebound. No hepatosplenomegaly or palpable masses. Extremities: No cyanosis, clubbing or edema. The patient moves all extremities. Pulses were equal and symmetric. Neurologic: Motor and sensation grossly intact. A & O x4. Psychologic: The patient was oriented to person, place and time. Progress Results/Orders Reviewed/noted all lab results: Yes Re-Evaluation Re-Evaluation : Re-Evaluation: Improved Progress Patient returns after being treated last night being hydrated given benzodiazepines for possible withdrawal in his now retching once again. Patient is requesting a full workup. Patient is hydrated he is going to be feeling sick for awhile because he continues to use marijuana and has cyclic vomiting complicated by the fact that his T is also prone to possible withdrawals because of his heavy drinking. Patient was given a shot of Valium a suppository for Phenergan and oral Phenergan syrup as well. Patient slightly improved and was discharged home. Medications were prescribed including rectal Phenergan as well as saw strict cream for cyclic vomiting. Patient was once again told he needs to stopped smoking pot Medical Decision Making Additional info obtained from: old records Differential Dx:Considerations: Include: Aortic dissection, Appendicitis, Bowel obstruction, Cholangitis, Cholelithasis, Constipation, Diverticular disease, Esophageal rupture, Esophagitis, Gastritis/PUD, Gastroenteritis, GI hemorrhage, Hernia, Hepatitis, Inflammatory BD, Ischemic bowel, Urinary obstruction, Urinary tract infection, Urolithiasis, Other Departure Time of Disposition: 05:23 Disposition: 01 HOME / SELF CARE / HOMELESS Impression: Primary Impression: Cyclical vomiting syndrome Additional Impressions: Transaminitis Esophageal tear Qualified Codes: S11.21XD - Laceration without foreign body of pharynx and c ervical esophagus, subsequent encounter Discharge Instructions: Cannabinoid Hyperemesis Syndrome, Cannabis Use Disorder Additional Instructions: Please stop smoking marijuana. You will continue to have similar episodes of illness until you are able to quit. Patient medically cleared for alcohol rehab and detox. Referrals: NO PRIMARY CARE PROVIDER (PCP) Prescriptions Promethazine Hcl (Promethazine Hcl) 25 Mg Supp.rect 1-2 SUPP RC Q6H for 3 Days, #20 SUPP 0 Refills Prov: CHINO CLIFFORD MD 07/24/25 ONDANSETRON ODT 4mg tablet (ONDANSETRON ODT) 4 Mg Tab.rapdis 1 TAB PO Q6H PRN PRN for nausea/vomiting for 4 Days, #16 TAB 0 Refills Prov: CHINO CLIFFORD MD 07/24/25 Capsaicin 60GM Cream* (Zostrix Cream*) 60 Gm Cream.gm. 1 APPLIC TOP Q12H for 30 Days, #60 GM Prov: CHINO CLIFFORD MD 07/24/25 Education Educated: Patient Educated regarding: diagnosis, need for follow up, other Signature Scribe Signature: Scribed for Chino Clifford MD by Chino Clifford MD . 07/24/25 05:20 Attestation: The note accurately reflects work and decisions made by me.Chino Clifford MD 07/24/25 05:11 CHINO CLIFFORD MD Jul 24, 2025 05:11
[2025-07-24] MEDS ORDERED: CAPS60CR6 TOP (05:17)
[2025-07-24] MEDS ORDERED: ONDA-243 PO (05:17)
[2025-07-24] MEDS ORDERED: PROM25SU51 RC (05:23)
[2025-07-24] MEDS: diazepam inj 5 MG/ML inj. IM ONE (05:27)
[2025-07-24] MEDS: proMETHazine 25mg rectal suppository RC ONE (05:28)
[2025-07-24 05:29] VITALS: BP 148/96; PULSE 102; RESP 16; O2SAT 98
[2025-07-24] MEDS: proMETHazine 6.25 mg/5 ml UD oral syrup PO STA (05:44)
== END 2025-07-24 05:44 | disposition home or self-care (01) ==
LOC: ER 05:09
DX: S11.21XA Laceration without foreign body of pharynx and cervical esophagus, initial encounter (principal); R11.2 Nausea with vomiting, unspecified; R10.9 Unspecified abdominal pain; I10 Essential (primary) hypertension; F41.9 Anxiety disorder, unspecified; F10.10 Alcohol abuse, uncomplicated; F12.10 Cannabis abuse, uncomplicated; W44.9XXA Unspecified foreign body entering into or through a natural orifice, initial encounter; Y93.89 Activity, other specified; Y92.89 Other specified places as the place of occurrence of the external cause; Y99.8 Other external cause status
CPT/HCPCS: 96372; 99283; J3360

== ENCOUNTER 2025-09-07 20:27 | Emergency (ER) | payer MEDICAID ==
[~2025-09-07] VITALS: Ht 162.6 cm; Wt 117.4 kg
[~2025-09-07 20:27] MED LIST changes: +PROM25SU51 RC
[2025-09-07 20:40] VITALS: BP 145/100; PULSE 108; TEMP 98.1; O2SAT 97
--- NOTE | 2025-09-07 20:52 | Physician Documentation ---
History of Present Illness ~ Chief Complaint: Testicular Pain Stated Complaint: TESTICULAR PAIN Time Seen by MD: 20:44 Primary Medical Doctor: HENRIETTA RDZ Patient presents to the emergency room with three day history of intermittent testicular pain. No prior instances. No trauma reported. No dysuria reported. No fevers reported. Medication Reconciliation Allergies: Coded Allergies: No Known Allergies (Unverified , 07/23/25) Scheduled Chlordiazepoxide Hcl (Librium), 25 MG PO DIRECTED Gabapentin (Gabapentin), 2 CAP PO TID Gabapentin (Gabapentin), 1 CAP PO Q8H Lisinopril (Lisinopril), 10 MG PO DAILY Lorazepam (Ativan), 1 TAB PO Q8H Metoclopramide HCl (Reglan), 1 TAB PO Q6H Metoclopramide HCl (Reglan), 1 TAB PO Q8H Naltrexone Hcl (Naltrexone Hcl), 1 TAB PO DAILY ONDANSETRON ODT 4mg tablet (Ondansetron Odt), 4 MG PO Q6H ONDANSETRON ODT 4mg tablet (Ondansetron Odt), 4 MG PO BID Olanzapine (Zyprexa), 1 TAB PO HS Olanzapine (Zyprexa), 1 TAB PO BID Ondansetron 8mg ODT (Ondansetron Odt), 1 TAB PO Q6H Ondansetron 8mg ODT (Ondansetron Odt), 1 TAB PO Q6H Pantoprazole Sodium (PROTONIX tablet), 1 TAB PO DAILY Pantoprazole Sodium (PROTONIX tablet), 1 TAB PO DAILY Potassium Chloride* (K-Dur*), 1 TAB PO DAILY Promethazine Hcl (Promethazine Hcl), 1-2 SUPP RC Q6H Scheduled PRN Acetaminophen (Tylenol Extra Strength), 2 TAB PO Q6H PRN PRN for pain or fever, (Reported) ONDANSETRON ODT 4mg tablet (Ondansetron Odt), 1 TAB PO Q6H PRN PRN for nausea/vomiting ONDANSETRON ODT 4mg tablet (Ondansetron Odt), 1 TAB PO Q6H PRN PRN for nausea/vomiting Tizanidine Hcl (Tizanidine Hcl), 1 CAP PO Q6H PRN for pain, (Reported) Past Medical History Past Medical History: Hypertension, Gastritis, Hematuria, Kidney Stones, Anxiety Past Surgical History: orthopedic surgeries Patient History: FH: diabetes mellitus FATHER FH: thyroid condition MOTHER Alcohol Use: Heavy Drug Use: marijuana Occupation: employed Review of Systems ROS All review of systems negative except as per HPI Physical Exam Vital Signs: Temperature: 98.1, Source: Oral, Heart Rate: 108, Respiratory Rate: 18, BP: 145/100, Pulse Oximetry: 97, Weight: 117.400 Oxygen Flow Rate: 0 Physical Exam General: Patient is awake, alert, oriented x4 in mild distress Head: Normocephalic and atraumatic. Eyes: Conjunctival normal. EOMI. PERRL. ENT: Mucous membranes moist. Neck: Supple, trachea is midline. Chest: Clear to auscultation bilaterally without rales, rhonchi, or wheezes. There is no accessory muscle use or retractions. Cardiac: RRR without murmurs, gallops, or rubs. : Deferred Progress Results/Orders Results/Orders Orders - NAVEEN RODRIGUEZ MD Us Testic/W/Duplex (09/07/25 20:44) Urinalysis, Cult If Indicated (09/07/25 20:44) Drug Screen, Urine (09/07/25 20:44) Completed Orders - NAVEEN RODRIGUEZ MD Us Testic/W/Duplex (09/07/25 20:44) Vital Signs 09/07/25 20:40 Temp 98.1 Pulse 108 Resp 18 B/P (MAP) 145/100 Pulse Ox 97 O2 Flow Rate 0 Medical Decision Making Additional information obtaine: old records Findings Patient presents to the emergency room with testicular pain as per HPI. Differentials include but are not limited to torsion, urinary tract infection, epididymitis, abscess therefore ultrasound ordered which was reassuring. Unknown cause for patient's testicular pain. We will empirically treat. Urinary Diff Dx:Considerations: Include: AAA, Aortic dissection, Appendicitis, Appendicitis train, Bowel obstruction, Bladder outlet obstruc., Cholelithiasis, Choleangitis, Cholecystitis, DJD, Epididymitis, Hepatitis, HNP, Impaction, Musculoskeletal pain, Pancreatitis, Postoperative Comp., Prostatitis, Pyelonephritis, Renal failure, Renal infarction, Strain, Urolithiasis, Urinary Obstruction, Urethritis, Urinary retention, UTI, Other Genital Diff Dx:Considerations: Include: Abscess, Balanitis, Balanoposthitis, Cellulitis, Epididymitis, Entrapment injury, Agnieszka's gangrene, Foreign body, Facture penis, Hydrocele, Inguinal hernia, Post-op Complication, Paraphimosis, Prostatitis, Priapism, Syphilis, Testicular torsion, Torsion-epididymis, Torsion-appendiceal, Urinary retention, Urethritis, Urethritis-chlamydial, Urethritis-gonococcal, UTI, Other Departure Disposition: 01 HOME / SELF CARE / HOMELESS Impression: Primary Impression: Pain in testicle Condition: Stable Discharge Instructions: Testicular Self-Exam, [id number] Referrals: NO PRIMARY CARE PROVIDER (PCP) Signature Scribe Signature: No scribe Attestation: The note accurately reflects work and decisions made by me.Naveen Rodriguez MD 09/07/25 21:12 NAVEEN RODRIGUEZ MD Sep 07, 2025 20:52
--- NOTE | 2025-09-07 21:29 | RADIOLOGY REPORT ---
EXAM: US US TESTIC/W/DUPLEX HISTORY: testicular pain COMPARISON: None TECHNIQUE: Multiple longitudinal and transverse sonographic images of the testicles/scrotum were obtained. Doppler was applied as indicated. FINDINGS: Limited examination secondary to patient limitation. [RIGHT]: 3 x 2 x 3.6 cm. Normal echogenicity. Normal vascularity. Normal epididymis with normal vascularity. No hydrocele. No varicocele [LEFT]: 3.5 x 2.3 x 2.8 cm. Normal echogenicity. Normal vascularity. Normal epididymis with normal vascularity. No hydrocele. No varicocele. Benign- appearing left epididymal anechoic cysts measuring 0.6 cm. [OTHER]: None IMPRESSION: 1. No acute sonographic abnormality of the scrotum.
[2025-09-07 21:38] VITALS: RESP 16
[2025-09-07] MEDS: ketorolac trometh 15mg/ml vial 15 MG/ML ML IM ONE (21:38)
== END 2025-09-07 21:43 | disposition home or self-care (01) ==
LOC: ER 20:28
DX: N50.819 Testicular pain, unspecified (principal); I10 Essential (primary) hypertension; F41.9 Anxiety disorder, unspecified; F12.90 Cannabis use, unspecified, uncomplicated; F10.90 Alcohol use, unspecified, uncomplicated; Y90.9 Presence of alcohol in blood, level not specified
CPT/HCPCS: 76870; 93976; 96372; 99285; J1885

== ENCOUNTER 2025-09-09 04:38 | Emergency (ER) | payer MEDICAID ==
[~2025-09-09] VITALS: Ht 162.6 cm; Wt 110.1 kg
--- NOTE | 2025-09-09 05:12 | Physician Documentation ---
History of Present Illness ~ Chief Complaint: Chest Pain Stated Complaint: CHEST PAIN Time Seen by MD: 05:03 Primary Medical Doctor: GUERO Mode of Arrival: Dropped Off HPI Patient presents to the emergency room with left-sided chest pain that he had noticed two days ago. Pain is exacerbated with movement and palpation. Tetanus within 5 Years?: No Allergies: Coded Allergies: No Known Allergies (Unverified , 07/23/25) Active Prescriptions See Medication Reconciliation Form. Medication Reconciliation Scheduled Chlordiazepoxide Hcl (Librium), 25 MG PO DIRECTED Gabapentin (Gabapentin), 2 CAP PO TID Gabapentin (Gabapentin), 1 CAP PO Q8H Lisinopril (Lisinopril), 10 MG PO DAILY Lorazepam (Ativan), 1 TAB PO Q8H Metoclopramide HCl (Reglan), 1 TAB PO Q6H Metoclopramide HCl (Reglan), 1 TAB PO Q8H Naltrexone Hcl (Naltrexone Hcl), 1 TAB PO DAILY ONDANSETRON ODT 4mg tablet (Ondansetron Odt), 4 MG PO Q6H ONDANSETRON ODT 4mg tablet (Ondansetron Odt), 4 MG PO BID Olanzapine (Zyprexa), 1 TAB PO HS Olanzapine (Zyprexa), 1 TAB PO BID Ondansetron 8mg ODT (Ondansetron Odt), 1 TAB PO Q6H Ondansetron 8mg ODT (Ondansetron Odt), 1 TAB PO Q6H Pantoprazole Sodium (PROTONIX tablet), 1 TAB PO DAILY Pantoprazole Sodium (PROTONIX tablet), 1 TAB PO DAILY Potassium Chloride* (K-Dur*), 1 TAB PO DAILY Promethazine Hcl (Promethazine Hcl), 1-2 SUPP RC Q6H Scheduled PRN Acetaminophen (Tylenol Extra Strength), 2 TAB PO Q6H PRN PRN for pain or fever, (Reported) ONDANSETRON ODT 4mg tablet (Ondansetron Odt), 1 TAB PO Q6H PRN PRN for nausea/vomiting ONDANSETRON ODT 4mg tablet (Ondansetron Odt), 1 TAB PO Q6H PRN PRN for nausea/vomiting Tizanidine Hcl (Tizanidine Hcl), 1 CAP PO Q6H PRN for pain, (Reported) Past Medical History Past Medical History: Hypertension, Gastritis, Hematuria, Kidney Stones, Anxiety Past Surgical History: orthopedic surgeries Patient History: FH: diabetes mellitus FATHER FH: thyroid condition MOTHER Alcohol Use: Heavy Drug Use: marijuana Occupation: employed Review of Systems ROS All review of systems negative except as per HPI Physical Exam Vital Signs: Temperature: 97.9, Heart Rate: 107, Respiratory Rate: 21, BP: 124/82, Pulse Oximetry: 98, Weight: 110.100 Oxygen Flow Rate: 0 Physical Exam General: Patient is awake, alert, oriented x4 in no acute distress Head: Normocephalic and atraumatic. Eyes: Conjunctival normal. EOMI. PERRL. ENT: Mucous membranes moist. Neck: Supple, trachea is midline. Chest: Clear to auscultation bilaterally without rales, rhonchi, or wheezes. There is no accessory muscle use or retractions. Tenderness to palpation beneath the left breast Cardiac: RRR without murmurs, gallops, or rubs. Abd: Soft, nondistended, nontender, with normoactive bowel sounds. No guarding, rebound, or rigidity. Progress Results/Orders Results/Orders Orders - NAVEEN RODRIGUEZ MD Chest,Single View (09/09/25 04:42) Monitor (09/09/25 04:42) Saline Lock (09/09/25 04:42) Oxygen (09/09/25 04:42) Electrocardiogram (09/09/25 04:42) Hs Troponin I W Calculations (09/09/25 06:42) Hs Troponin I W Calculations (09/09/25 07:42) Metoclopramide Inj (Reglan Inj) (09/09/25 05:55) Ondansetron Inj. (Zofran 4mg/2ml Vial) (09/09/25 05:55) Sucralfate Tablet (Carafate Tablet) (09/09/25 05:55) Completed Orders - NAVEEN RODRIGUEZ MD Chest,Single View (09/09/25 04:42) Cbc/Diff (09/09/25 04:42) BMP (09/09/25 04:42) PBNP (09/09/25 04:42) Hs Troponin I W Calculations (09/09/25 04:42) Ketorolac Trometh 15mg/Ml Vial (Toradol (09/09/25 05:10) Medications Received in ER Medications (Trade) Dose Ordered Sig/Manju Route PRN Reason Start Time Stop Time Status Last Admin Dose Admin (Toradol injection) 15 mg ONCE ONCE IV 09/09/25 05:10 09/09/25 05:11 DC 09/09/25 05:15 15 MG Vital Signs 09/09/25 09/09/25 09/09/25 09/09/25 04:43 04:50 05:15 05:43 Temp 97.9 97.9 Pulse 107 93 Resp 18 26 B/P (MAP) 124/82 144/85 (104) Pulse Ox 98 97 O2 Flow Rate 0 0 Laboratory Tests Test 09/09/25 05:00 White Blood Count 9.2 Red Blood Count 5.70 Hemoglobin 17.6 Hematocrit 50.6 Mean Corpuscular Volume 88.8 Mean Corpuscular Hemoglobin 30.8 Mean Corpuscular Hemoglobin Concent 34.7 Red Cell Distribution Width 14.5 Platelet Count 329 Mean Platelet Volume 8.0 Neutrophils (%) (Auto) 70.5 Lymphocytes (%) (Auto) 15.1 L Monocytes (%) (Auto) 12.8 H Eosinophils (%) (Auto) 1.0 Basophils (%) (Auto) 0.6 Neutrophils # (Auto) 6.5 Lymphocytes # (Auto) 1.4 Monocytes # (Auto) 1.2 H Eosinophils # (Auto) 0.1 Basophils # (Auto) 0.1 CBC Comment Sodium Level 139 Potassium Level 3.5 Chloride Level 101 Carbon Dioxide Level 21.5 L Anion Gap 17 H Blood Urea Nitrogen 11 Creatinine 1.01 Estimated GFR/1.73 m2 84 BUN/Creatinine Ratio 10.9 Glucose Level 119 H Calcium Level 9.3 Troponin I High Sensitivity < 4 L Troponin I High Sens Percent Delta Troponin I Hi Sens Absolute Change Pro-B-Type Natriuretic Peptide < 30 Albumin 3.8 Chemistry Comments EKG/XRAY/CT/US/VASC/MRI EKG : Additional Comment EKG interpreted by myself shows time of 0443, rate 131, sinus tachycardia, normal axis, no ST changes Chest X-Ray : Additional Comments One view chest x-ray interpreted by myself is negative for effusions, negative for infiltrates and normal cardiac silhouette. Medical Decision Making Additional information obtaine: old records Findings Patient presents to the emergency room with atypical chest pain as per HPI. Differentials include but are not limited to ACS, pulmonary embolism, musculoskeletal pain, pneumothorax therefore emergent labs and imaging indicated. Labs and imaging reassuring. Given physical exam symptoms are musculoskeletal in nature. Differential Dx:Considerations: Include: Chest wall contusion, Flail chest, Myocardial contusion, Pneumothorax, Pulmonary contusion, Rib fracture, Renal c ontusion, Splenic fracture, Tension pneumothorax, Other Departure Disposition: HOME / SELF CARE / HOMELESS Impression: Primary Impression: Chest wall pain Additional Impression: Cyclical vomiting syndrome Condition: Stable Discharge Instructions: Chest Wall Pain Additional Instructions: You may take ibuprofen and Tylenol together for pain. Referrals: NO PRIMARY CARE PROVIDER (PCP) Signature Scribe Signature: No scribe Attestation: The note accurately reflects work and decisions made by me.Naveen Rodriguez MD 09/09/25 05:11 NAVEEN RODRIGUEZ MD Sep 09, 2025 05:12
[2025-09-09] MEDS: ketorolac trometh 15mg/ml vial 15 MG/ML ML IV ONE (05:15)
[2025-09-09 05:17] LABS: MEAN PLATELET VOLUME 8.0 FL (7.4-10.4); RED CELL DISTRIBUTION WIDTH 14.5 % (11.5-14.5)
--- NOTE | 2025-09-09 05:17 | RADIOLOGY REPORT ---
CHEST RADIOGRAPH Indication: CP Technique: Single frontal view of the chest was obtained COMPARISON: DI CHEST,SINGLE VIEW on DOS: 07/23/25, DI CHEST,SINGLE VIEW on DOS: 06/25/25, DI CHEST,SINGLE VIEW on DOS: 03/22/25, DI CHEST,SINGLE VIEW on DOS: 12/17/24, DI CHEST,SINGLE VIEW on DOS: 04/17/24 FINDINGS: Lines and Tubes: None Lungs: Clear Pleura: No effusion. No pneumothorax. Cardiomediastinal contours: Unremarkable Bones: Unremarkable IMPRESSION: No acute disease.
[2025-09-09 05:36] LABS: CREATININE 1.01 MG/DL (0.60-1.10); PRO BRAIN NATRIURETIC PEPTIDE < 30 PG/ML (0-125); TOTAL CARBON DIOXIDE 21.5 MMOL/L (24-32); eCRCL 85 ML/MIN; eGFR 84 ML/MIN
[2025-09-09 05:43] VITALS: TEMP 97.9
[2025-09-09] MEDS: ondansetron/PF 4mg/2ml inj IV ONE (06:09)
[2025-09-09] MEDS: metoclopramide 5 mg/ml inj IV ONE (06:09)
--- NOTE | 2025-09-09 06:26 | ELECTROCARDIOGRAPH REPORT ---
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 RAHUL Mcdonald Measurements Intervals [place] Rate: 131 P: 45 CT: 110 QRS: 56 QRSD: 107 T: 40 QT: 319 QTc: 471 Interpretive Statements Sinus tachycardia Baseline wander in lead(s) II,aVR,V1,V2,V3,V5,V6 Electronically Signed On 09-09-2025 17:19:[address] RAHUL Mcdonald Please click the below link to view image of tracing.
[2025-09-09 06:28] VITALS: BP 118/80; PULSE 77; RESP 14; O2SAT 97
== END 2025-09-09 06:46 | disposition home or self-care (01) ==
LOC: ER 04:38
DX: R07.89 Other chest pain (principal); R11.15 Cyclical vomiting syndrome unrelated to migraine; I10 Essential (primary) hypertension; F12.90 Cannabis use, unspecified, uncomplicated; F41.9 Anxiety disorder, unspecified; Z79.899 Other long term (current) drug therapy; Z87.19 Personal history of other diseases of the digestive system; Z87.442 Personal history of urinary calculi; Z98.890 Other specified postprocedural states
CPT/HCPCS: 36415; 71045; 80048; 83880; 84484; 85025; 93005; 96374; 96375; 99285; J1885; J2405; J2765